=== PATIENT | male | born 1955 | race Caucasian/White ===

== ENCOUNTER → 2018-07-06 11:07 | Outpatient (CLI) | payer MEDICARE | END | disposition home or self-care (01) | LOC: D.MRI 11:07 | DX: M54.16 Radiculopathy, lumbar region (principal) ==

== ENCOUNTER 2018-08-17 05:35 | Day surgery (SDC) | payer MEDICARE ==
[2018-08-16 10:43] LABS: HEMATOCRIT 45.9 % (42.0-54.0); HEMOGLOBIN 16.4 g/dL (13.5-17.5); MCH 33.7 pg (26.0-34.0); MCHC 35.7 g/dL (31.0-37.0); MCV 94.4 fL (80.0-100.0); MEAN PLATELET VOLUME 10.2 fL (7.4-10.4); RBC 4.86 10x6/uL (4.20-6.10); RDW 13.3 % (11.5-14.5); WBC 12.7 10x3/uL (4.8-10.8)
[~2018-08-17] VITALS: Ht 170.2 cm; Wt 68.0 kg
--- NOTE | ~2018-08-17 | OP ---
PATIENT NAME: DAPHNIE CARVAJAL MEDICAL RECORD: [id number] :51 LOCATION:[facility] ADMISSION DATE: SURGEON: PANCHO NGUYEN MD DATE OF OPERATION: 08/17/2018 SURGEON: Pancho Nguyen MD ANESTHESIA: TIVA by Carey Mandujano CRNA. PROCEDURE: Transrectal ultrasound and prostate biopsy. DIAGNOSIS: Elevated PSA of 5.2. FINDINGS: 29 gram prostate with intraprostatic stones. EKG shows ST depression in multiple leads. SPECIMENS: Prostate biopsy cores. ESTIMATED BLOOD LOSS: Minimal. CLINICAL HISTORY: This is a 62-year-old male, who was referred by his primary care physician for an elevated PSA level of 5.2. He has some mild voiding symptoms including nocturia times 2. There is no family history of prostate cancer. He comes today for a prostate biopsy. He has no allergies to medication. He was given Ancef drywall contractor to the OR. His preoperative EKG shows ST depression in multiple lateral leads. We had the EKG reviewed by Dr. Amin, our pattern worker. Cardiology cleared him for this prostate biopsy procedure, but he needs a further cardiac workup. Next week, he is scheduled to have cervical spinal fusion surgery by Dr. Vora. He will need to get his cardiac clearance before that surgery. DESCRIPTION OF PROCEDURE: The patient was given IV sedation. He was then placed in the lithotomy position. The transrectal ultrasound probe was placed and the patient's prostate size was measured at 29 grams. Intraprostatic stones were seen, but no hypoechoic areas were seen. The patient persistently kept coughing throughout the procedure and straining. We obtained at least 3 cores from each sextant. Once all the cores are obtained, the procedure was terminated. I will review the pathology results with him next Thursday prior to his neck surgery on Thursday. TRANSINT:[id number] Voice Confirmation ID: [id number] DOCUMENT ID: [id number] PANCHO NGUYEN MD at 1346 CC: [id number] DICTATION DATE: 08/17/18 0854 CORRECTIONS CADET: 08/17/18 1112 [facility] 08/17/18 [place] [id number]
[~2018-08-17 05:35] MED LIST: BACTRIM DS1 TAB PO; TOPROL XL200 MG PO
[2018-08-17 06:15] VITALS: BP 143/63; Ht 170.2 cm; Wt 68.0 kg
== END 2018-08-17 10:11 | disposition home or self-care (01) ==
LOC: D.OPS 05:35 → D.PAN 09:00 → D.OPS 09:00 → D.PAN 09:15 → D.OPS 09:15
PROVIDERS: Urology
DX: R97.20 Elevated prostate specific antigen [PSA] (principal); Z01.812 Encounter for preprocedural laboratory examination

== ENCOUNTER → 2018-08-19 10:52 | Outpatient (CLI) | payer MEDICARE ==
[2018-08-17 06:15] VITALS: BMI 23.5
== END | disposition home or self-care (01) ==
LOC: D.HCCARDIO 10:52
DX: R94.31 Abnormal electrocardiogram [ECG] [EKG] (principal)

== ENCOUNTER 2018-08-24 05:10 | Day surgery (SDC) | payer MEDICARE ==
[2018-08-23 10:29] LABS: HEMATOCRIT 43.9 % (42.0-54.0); HEMOGLOBIN 15.6 g/dL (13.5-17.5); MCH 33.5 pg (26.0-34.0); MCHC 35.5 g/dL (31.0-37.0); MCV 94.2 fL (80.0-100.0); MEAN PLATELET VOLUME 10.3 fL (7.4-10.4); RBC 4.66 10x6/uL (4.20-6.10); WBC 10.2 10x3/uL (4.8-10.8)
[2018-08-24] VITALS (20 sets, daily range): BP systolic 145–177; BP diastolic 55–128; Ht 170.2 cm; Wt 72.3 kg
[~2018-08-24] VITALS: Ht 170.2 cm; Wt 72.3 kg
--- NOTE | ~2018-08-24 | OP ---
PATIENT NAME: DAPHNIE CARVAJAL MEDICAL RECORD: [id number] :51 [facility] AD[facility] DATE: SURGEON: JONES VORA MD DATE OF OPERATION: 08/24/2018 DATE OF SERVICE: 08/24/2018 PREOPERATIVE DIAGNOSES: Osteophyte formation and disc herniation at C4-C5 and C7-T1 with cervical spinal cord myelopathy. PROCEDURE: Anterior cervical discectomy and fusion with removal of osteophytes at C4-C5 and C7-T1 with Zavation anterior cervical plate and screws, PEEK interbody cage, Aimee bone stem cell allograft. SURGEON: Jones Vora MD DESCRIPTION OF TECHNIQUE: After induction of general endotracheal anesthesia, the patient was positioned supine on the operating table. Neck was prepped and draped in usual sterile fashion. A freer and fluoroscopic x-ray localized at C4-C5 and C7-T1 interspaces. A longitudinal skin incision was carried out from C4-C5 interspace to C7-T1. The platysma was divided with Bovie cautery. Using blunt and sharp dissection with Metzenbaum scissors, I proceeded in avascular plane medial to the carotid sheath. The C4-C5 and C7-T1 interspaces were identified with fluoroscopic x-ray and a spinal needle. Longus colli muscles were elevated from bodies of C4-C5 and C7-T1. Osteophytes were removed anteriorly with Adson rongeurs. [place] distracting pins placed in the bodies of C4-C5 and C7-T1. The disc space was incised at each level and the disc was removed with pituitary rongeurs and curettes. The endplates were prepared with curettes at each level. Osteophytes were drilled away posteriorly under microscope illumination. The posterior longitudinal ligament was removed at C4-C5 and C7-T1 at both levels. A PEEK interbody cage was placed in each disc space under distraction. Prior to placement, it was filled with Aimee Bone stem cell allograft. Next, a separate anterior cervical plate and screws were placed at C4-C5 and C7-T1. Locking cams were tightened down over the screw heads. Good position of the hardware was confirmed with fluoroscopic x-ray. Meticulous hemostasis was maintained throughout the wound. The wound was irrigated with copious amounts of Ancef irrigant solution. The platysma and subdermal layer closed with interrupted 3-0 Vicryl suture. The skin was reapproximated with a Prineo. All counts were reported as correct. Estimated blood loss was minimal. TRANSINT:[id number] Voice Confirmation ID: [id number] DOCUMENT ID: [id number] JONES VORA MD at 0928 CC: [id number] DICTATION DATE: 08/31/18913 NATURAL RESOURCES INSTRUCTOR: 08/31/18 1003 [facility] 08/25/18 [place] [id number]
[2018-08-25] VITALS (9 sets, daily range): BP systolic 151–201; BP diastolic 65–89
== END 2018-08-25 12:30 | disposition home or self-care (01) ==
LOC: D.OPS 05:10 → D.CVICU 05:10 → D.PAN 07:30 → D.OPS 07:30 → D.CVICU 11:41 → D.OPS 08-25 12:30
PROVIDERS: Anesthesiology
DX: M50.021 Cervical disc disorder at C4-C5 level with myelopathy (principal); M50.03 Cervical disc disorder with myelopathy, cervicothoracic region; M25.78 Osteophyte, vertebrae; R94.31 Abnormal electrocardiogram [ECG] [EKG]; I10 Essential (primary) hypertension

== ENCOUNTER 2018-09-08 11:18 | Outpatient (CLI) | payer MEDICARE ==
[~2018-09-08] VITALS: Ht 170.2 cm; Wt 68.2 kg
--- NOTE | ~2018-09-08 | HEMODYNAMI ---
PATIENT:DAPHNIE CARVAJAL MEDICAL RECORD: [id number] : 51 LOCATION:[facility] ADMISSION DATE: 09/08/18 Generatedon:09/08/201814:42 Patient name: DAPHNIE CARVAJAL Patient #: [id number] SSN: : 1955 Date of study: 09/08/2018 Page: Of Hemodynamic Procedure Report Patient Data Patient Demographics Procedure consent was obtained First Name: DAPHNIE Gender: Male Last Name: ALENA : 1955 Middle Initial: A Age: 62 year(s) Patient #: [id number] Race: Unknown Additional ID: [id number] Contact details Address: [address] [place] [address] State: [place] City: [facility] [place] Zip code: [address] Past Medical History Allergies: No known allergies Admission Admission Data Admission Date: 09/08/2018 Admission Time: 11:18 Admit Source: Other Lab Results Lab Result Date: 09/08/2018 Lab Result Time: 0:00 Biochemistry Name Units Result Min Max BUN mg/dl 13 --(--*-)-- 7 18 Creatinine mg/dl 0.8 --(-*--)-- 0.6 1.3 CBC Name Units Result Min Max Hematocrit % 42.7 --(*---)-- 42 54 Hemoglobin g/dl 14.9 --(-*--)-- 13.5 17.5 Procedure Procedure Types Cath Procedure Diagnostic Procedure LHC LHC w/Coronaries Procedure Description Procedure Date Procedure Date: 09/08/2018 Procedure Start Time: 14:24 Procedure End Time: 14:39 Procedure Staff Name Function Ramon Amin MD Performing Physician Remberto Jones RN Nurse Raymond Khan RT Scrub Gonzalo Mireles RT Monitor Procedure Data Cath Procedure Fluoroscopy Diagnostic fluoroscopy Total fluoroscopy Time: 2.8 time: 2.8 min min Diagnostic fluoroscopy Total fluoroscopy dose: dose: 214.11 mGy 214.11 mGy Contrast Material Contrast Material Type Amount (ml) Isovue 300 69 Entry Location Entry Primary Successful Side Size Upsize Upsize Entry Closure Gonzalez ccessful Closure Location (Fr) 1 (Fr) 2 (Fr) Remarks Device Remarks Radial Right 6 Fr Mechanical artery Short Compression Estimated blood loss: 5 ml Diagnostic catheters Device Type Used For End Catheter Placement DIAGNOSTIC Sigifredo 110cm Procedure 5Fr catheter ([id number]) DIAGNOSTIC Scenic 110cm 5 Procedure Fr catheter (034713) Procedure Complications No complications Procedure Medications Medication Administration Route Dosage Oxygen etCO2 Nasal cannula 2 l/min Lidocaine 2% added to field 20 Heparin Flush Bag added to field 2 bags (1000units/500ml NS) 0.9% NaCl I.V. 100 ml/hr Versed I.V. 1 mg Fentanyl I.V. 50 mcg Versed I.V. 1 mg Fentanyl I.V. 50 mcg Radial Cocktail I.A. 1 syringe (Verapomil 2mg/Nitro 400mcg/Heparin 1500units) Hemodynamics Rest HGB: 14.9 (g/dl) Heart Rate: 66 (bpm) Pressure Samples Time Site Value (mmHg) Purpose Heart Use Rate(bpm) 14:26 LV 117/-1,17 Snapshot 75 Gradients Valve Time Site Site Mean SEP/DFP Peak To Heart Use 1 2 (mmHg) (sec/min) Peak Rate (mmHg) (bpm) Aortic 14:27 LV AO 26 Snapshots Pre Cath Intra NCS Post Cath Vital Signs Time Heart Resp SPO2 etCO2 NIBP (mmHg) Rhythm Pain Sedation Rate (ipm) (%) (mmHg) Status Level (bpm) 14:06:35 75 23 96 0 156/84(124) NSR 0 (11) 10(A) , No pain 14:10:51 69 22 97 33.3 151/82(127) NSR 0 (11) 10(A) , No pain 14:15:07 73 17 95 33.3 139/76(122) NSR 0 (11) 10(A) , No pain 14:19:25 73 15 95 0 152/82(111) NSR 0 (11) 10(A) , No pain 14:24:36 64 17 92 24.2 161/81(132) NSR 0 (11) 9(A) , No pain 14:28:48 73 13 94 35.5 135/73(111) NSR 0 (11) 9(A) , No pain 14:33:05 74 14 93 24.9 141/72(112) NSR 0 (11) 9(A) , No pain 14:37:22 74 14 97 29.5 147/86(119) NSR 0 (11) 10(A) , No pain Medications Time Medication Route Dose Verified Delivered Reason Notes Effectiveness by by 14:11:49 Oxygen etCO2 2 l/min Ramon Buffie used for Nasal Brennan Jones RN procedure cannula 14:11:55 Lidocaine 2% added 20ml Ramon Ramon for local to vial Brennan Amin MD anesthetic field 14:12:02 Heparin Flush added 2 bags Ramon Ramon used for Bag to Brennan Amin MD procedure (1000units/500ml field NS) 14:12:11 0.9% NaCl I.V. 100 Ramon Buffie Per ml/hr Brennan Jones RN physician 14:19:14 Versed I.V. 1 mg Ramon Buffie for sedation Brennan Jones RN 14:19:22 Fentanyl I.V. 50 mcg Ramon Buffie for sedation Brennan Jones RN 14:23:43 Versed I.V. 1 mg Ramon Buffie for sedation Brennan Jones RN 14:23:48 Fentanyl I.V. 50 mcg Ramon Buffie for sedation Brennan Jones RN 14:30:57 Radial Cocktail I.A. 1 Ramon Ramon for (Verapomil syringe Brennan Amin MD vasodilation 2mg/Nitro 400mcg/Heparin 1500units) Procedure Log Time Note 13:19:29 Informed consent obtained and on chart 13:19:33 Admit Source: Other 13:19:48 Diagnostic Cath status Elective 13:43:04 Lab Result : BUN 13 mg/dl 13:43:04 Lab Result : Hemoglobin 14.9 g/dl 13:43:04 Lab Result : Creatinine 0.8 mg/dl 13:43:04 Lab Result : Hematocrit 42.7 % 13:43:07 Lab results completed and on chart. 13:54:48 Raymond KIM(R) sent for patient. Start room use. 13:54:49 Time tracking: Regular hours (M-F 7:00 - 5:00) 13:54:52 Plan of Care:Hemodynamics will remain stable., Cardiac rhythm will remain stable., Comfort level will be maintained., Respiratory function will remain adequate., Patient/ family verbilizes understanding of procedure., Procedure tolerated without complication., Recovers from procedure without complications.. 13:55:01 H&P Date Dictated: 08/19/2018 Within 30 days and on chart., H&P Addendum completed by physician on day of procedure. (MUST COMPLETE FOR ALL OUTPATIENTS). 13:58:35 Patient received from Pre/Post Procedure Room to CCL 3 Alert and oriented. Tansferred to table in Supine position. 13:58:36 Warm blankets applied, and carol hugger turned on for patient comfort. 13:58:36 Correct patient and procedure confirmed by team. 13:58:37 ECG and BP/O2 sat monitors applied to patient. 13:58:38 Pre-procedure instructions explained to patient. 13:58:39 Pre-op teaching completed and patient verbalized understanding. 13:58:40 Family in waiting room. 13:58:42 Patient NPO since Midnight. 13:58:49 Patient allergic to No known allergies 13:58:51 Is the patient allergic to Iodine/contrast media? No. 14:05:19 Vital chart was started 14:05:20 Baseline sample Acquired. 14:05:24 Rhythm: sinus rhythm 14:05:26 Full Disclosure recording started 14:11:49 Oxygen 2 l/min etCO2 Nasal cannula was administered by Remberto Jones RN; used for procedure; 14:11:55 Lidocaine 2% 20ml vial added to field was administered by Ramon Amin MD; for local anesthetic; 14:12:02 Heparin Flush Bag (1000units/500ml NS) 2 bags added to field was administered by Ramon Amin MD; used for procedure; 14:12:11 0.9% NaCl 100 ml/hr I.V. was administered by Remberto Jones RN; Per physician; 14:12:34 Is patient on blood thinner?No 14:12:36 Patient diabetic? No. 14:12:38 Previous problem with sedation/anesthesia? No ? 14:12:39 Snore? Yes 14:12:40 Sleep apnea? No 14:12:41 Deviated septum? No 14:12:41 Opens mouth fully? Yes 14:12:42 Sticks out tongue? Yes 14:13:03 Airway obstruction? Yes Asthma 14:13:28 Dentures? No ? 14:13:32 Patient pain scale 0/10 ?. 14:13:33 Modified Luis's test Ulnar < 7 seconds 14:13:37 IV patent on arrival in left hand with 0.9% NaCl at [facility]. 14:13:45 Right Radial & Right Groin area was prepped with chlora-prep and draped in sterile fashion 14:13:46 Alarms reviewed by R. N. 14:13:46 Sharps counted by scrub and verified by R.N. 14:13:50 Use device set Radial Dx or PCI 14:13:51 ACIST Syringe (38845) opened to sterile field. 14:13:51 Medline Cath Pack ([id number]) opened to sterile field. 14:13:51 Bag Decanter (2002S) opened to sterile field. 14:13:52 ACIST Hand Control (99332) opened to sterile field. 14:13:53 ACIST Manifold (04990) opened to sterile field. 14:13:53 Tegaderm 4 x 4 (1626W) opened to sterile field. 14:13:57 SHEATH 6FR Slender (78-1060) opened to sterile field. 14:13:58 DIAGNOSTIC WIRE .035 260cm J wire (524344) opened to sterile field. 14:18:15 Zero performed for pressure channel P1 14:18:47 Physician arrived 14:18:48 --------ALL STOP TIME OUT------ 14:18:49 Final Timeout: patient, procedure, and site verified with staff and physician. All members of the team are in agreement. 14:18:52 Right Radial & Right Groin site verified by team. 14:18:54 Physical assessment completed. ASA score P 2 - A patient with mild systemic disease as per Ramon Amin MD. 14:18:57 Sedation plan: IV Moderate Sedation Medication:Versed, Fentanyl 14:19:14 Versed 1 mg I.V. was administered by Remberto Jones RN; for sedation; 14:19:22 Fentanyl 50 mcg I.V. was administered by Remberto Jones RN; for sedation; 14:23:43 Versed 1 mg I.V. was administered by Remberto Jones RN; for sedation; 14:23:48 Fentanyl 50 mcg I.V. was administered by Remberto Jones RN; for sedation; 14:24:08 Procedure started. 14:24:13 Local anesthetic to right radial artery with Lidocaine 2% by Ramon Amin MD.INITIAL ACCESS ONLY 14:24:20 A 6 Fr Short sheath was inserted into the Right Radial artery 14:25:04 A DIAGNOSTIC Sigifredo 110cm 5Fr catheter (670444) was advanced over the wire and used for Procedure. 14::33 LV gram done using OCHOA 14::35 Injector settings: Ml/sec: 5, Volume: 15, 14::36 LV hemodynamics recorded. 14::41 EF : 60 % 14:27:53 RCA angiography performed. 14:29:00 Catheter exchanged over wire. 14:30:05 A DIAGNOSTIC Scenic 110cm 5 Fr catheter (600358) was advanced over the wire and used for Procedure. 14:30:35 LCA angiography performed. 14:30:57 Radial Cocktail (Verapomil 2mg/Nitro 400mcg/Heparin 1500units) 1 syringe I.A. was administered by Ramon Amin MD; for vasodilation; 14:34:02 Catheter removed. 14:34:03 TR BAND Standard ([id number]) opened to sterile field. 14:34:14 Sheath removed intact; hemostasis achieved with Mechanical Compression to the Right Radial artery. 14:34:22 Procedure ended.(Physican Out) 14:36:53 Fluoroscopy time 02.80 minutes. 14:37:01 Fluoroscopy dose: 214.11 mGy 14:37:01 Flurop Dose total: 214.11 14:37:06 Contrast amount:Isovue 300 69ml. 14:37:07 Sharps counted by scrub and verified by R.N. 14:37:09 TR band inflated with 13cc of air. 14:37:12 Insertion/operative site no bleeding no hematoma. 14:37:18 Post right radial artery:stable, soft, clean and dry 14:37:19 Post Procedure Pulses reassessed and unchanged 14:37:21 Post-procedure physical assessment completed. ASA score P 2 - A patient with mild systemic disease as per Ramon Amin MD. 14:37:24 Post procedure rhythm: unchanged. 14:37:26 Estimated blood loss: 5 ml 14:37:28 Post procedure instruction explained to patient.Patient verbalizes understanding. 14:37:28 Patient needs reinforcement of post procedure teaching. 14:39:31 Procedure and supply charges have been captured, reviewed, submitted and are correct. 14:39:33 Procedure Complication : No complications 14:39:35 Vital chart was stopped 14:39:35 See physician's report for complete and final results. 14:39:36 Report given to Pre/Post Procedure Room. 14:39:39 Patient transfered to Pre/Post Procedure Room with Stretcher. 14:39:41 Procedure ended. 14:39:41 Full Disclosure recording stopped 14:39:45 End room use (Document Last) Device Usage Item Name Manufacture Quantity Catalog Hospital Part Current Minimal Lot# / Number Charge Number Stock Stock Serial# Code ACIST Acist 1 81727 941763 839094 127547 20 Syringe Medical (37652) Systems Inc Medline Medline 1 [id number] 815041 04571 801273 5 Cath Pack ([id number]) Bag Microtek 1 2001S 879740 59448 470216 5 Decanter Medical Inc. () ACIST Hand Acist 1 84270 253547 828473 666288 5 Control Medical (44817) Systems Inc ACIST Acist 1 53447 917611 084791 845785 5 Manifold Medical (69162) Systems Inc Tegaderm 4 3M 1 1626W 429317 992910 545579 5 x 4 (1626W) SHEATH 6FR Terumo 1 [id number] 388647 861711 580758 40 Slender (80-1060) DIAGNOSTIC St Elijah 1 362489 754875 242957 500175 30 WIRE .035 260cm J wire (845729) DIAGNOSTIC Terumo 1 405023 379785 630429 047391 5 Sigifredo 110cm 5Fr catheter (433162) DIAGNOSTIC Terumo 1 40-5013 135982 492114 378395 5 Scenic 110cm 5 Fr catheter (108460) TR BAND Terumo 1 [id number] 394298 448340 761512 40 Standard ([id number]) Signature Audit [place] Stage Time Signature Unsigned Intra-Procedure 09/08/2018 Gonzalo Mireles 2:42:43 PM RT(R) Signatures Monitor : Gonzalo Mireles RT Signature : Date : Time : [place] [address] [place] [address]
[2018-09-08 11:56] VITALS: BP 183/72; Ht 170.2 cm; Wt 68.2 kg
[2018-09-08 12:15] LABS: BASOPHILS 1.8 % (0-2); EOSINOPHILS 5.7 % (0-7); HEMATOCRIT 42.7 % (42.0-54.0); HEMOGLOBIN 14.9 g/dL (13.5-17.5); IMMATURE GRANULOCYTES 0.1 % (0-5); LYMPHOCYTES 43.9 % (15-50); MCH 33.5 pg (26.0-34.0); MCHC 34.9 g/dL (31.0-37.0); MEAN PLATELET VOLUME 11.7 fL (7.4-10.4); MONOCYTES 12.6 % (2-11); NEUTROPHILS 35.9 % (40-80); RBC 4.45 10x6/uL (4.20-6.10); RDW 13.2 % (11.5-14.5); WBC 7.4 10x3/uL (4.8-10.8)
[2018-09-08 12:16] LABS: PLATELET COUNT 101 10x3/uL (130-400)
[2018-09-08 12:36] LABS: CALC OSMOLALITY 263 mosm/kg (275-300); CALCIUM 8.8 mg/dL (8.5-10.1); CARBON DIOXIDE 27.9 mmol/L (21.0-32.0); CHLORIDE - SERUM 98 mmol/L (98-107); CREATININE - SERUM 0.8 mg/dL (0.6-1.3); GLUCOSE 85 mg/dL (74-106); SODIUM 132 mmol/L (136-145); UREA NITROGEN 13 mg/dL (7-18); eGFR NON AFRICAN AMERICAN > 90 mL/min (90-120)
[2018-09-08 12:37] LABS: POTASSIUM - SERUM 5.6 mmol/L (3.5-5.1)
== END 2018-09-08 16:52 | disposition home or self-care (01) ==
LOC: D.CATH 11:18
PROVIDERS: Internal Medicine Cardiovascular Disease
DX: I25.10 Atherosclerotic heart disease of native coronary artery without angina pectoris (principal)

== ENCOUNTER → 2018-09-20 11:04 | Outpatient (CLI) | payer MEDICARE ==
[2018-09-08 11:56] VITALS: BMI 23.5
== END | disposition home or self-care (01) ==
LOC: D.CT 11:04
DX: I65.23 Occlusion and stenosis of bilateral carotid arteries (principal); R93.1 Abnormal findings on diagnostic imaging of heart and coronary circulation

== ENCOUNTER 2018-10-01 05:00 | Inpatient (IN) | payer MEDICARE ==
[2018-09-29 11:31] LABS: ALBUMIN 3.5 g/dL (3.4-5.0); ALKALINE PHOSPHATASE 156 U/L (46-116); ALT (SGPT) 58 U/L (10-68); BILIRUBIN - TOTAL 0.88 mg/dL (0.2-1.3); CALC OSMOLALITY 279 mosm/kg (275-300); CARBON DIOXIDE 28.9 mmol/L (21.0-32.0); CHLORIDE - SERUM 103 mmol/L (98-107); CREATININE - SERUM 0.9 mg/dL (0.6-1.3); GLUCOSE 104 mg/dL (74-106); POTASSIUM - SERUM 5.3 mmol/L (3.5-5.1); PROTEIN - SERUM 7.8 g/dL (6.4-8.2); SODIUM 140 mmol/L (136-145); UREA NITROGEN 15 mg/dL (7-18); eGFR NON AFRICAN AMERICAN 90 mL/min (90-120)
[2018-09-29 11:37] LABS: INR 1.11 (0.85-1.17); PROTIME 13.8 SECONDS (11.6-15.0)
[2018-09-29 11:38] LABS: APTT 45.4 SECONDS (22.8-39.4)
[2018-09-29 11:39] LABS: HEMATOCRIT 42.1 % (42.0-54.0); HEMOGLOBIN 14.6 g/dL (13.5-17.5); MCHC 34.7 g/dL (31.0-37.0); MCV 95.2 fL (80.0-100.0); MEAN PLATELET VOLUME 10.4 fL (7.4-10.4); RBC 4.42 10x6/uL (4.20-6.10); RDW 13.5 % (11.5-14.5)
[~2018-10-01] VITALS: Ht 170.2 cm; Wt 71.4 kg
[2018-10-01] VITALS (57 sets, daily range): BP systolic 111–159; BP diastolic 41–65; Ht 170.2 cm; Wt 71.4 kg
[2018-10-01 06:44] LABS: HEMATOCRIT 37.8 % (42.0-54.0); HEMOGLOBIN 13.5 g/dL (13.5-17.5); MCH 33.4 pg (26.0-34.0); MCHC 35.7 g/dL (31.0-37.0); MCV 93.6 fL (80.0-100.0); MEAN PLATELET VOLUME 10.5 fL (7.4-10.4); RBC 4.04 10x6/uL (4.20-6.10); RDW 13.6 % (11.5-14.5)
[2018-10-01 06:50] LABS: APTT 40.8 SECONDS (22.8-39.4); INR 1.06 (0.85-1.17); PROTIME 13.3 SECONDS (11.6-15.0)
--- NOTE | 2018-10-01 13:10 | NUR ---
1045-RECIEEVED FROM OR-RESPONDS EASILY TO VERBAL-HOB ELEVATED -R RADIAL ROME TO MONITOR-SIMPLE MASK AT 10L-SAT 94%-MORENO TO ALL EXREMITIES EQUAL-ABLE TO STATE NAME-CLEVIPREX INFUSING AT 17ML/H AND NITROGLYCERIN GTT AT 17ML/H-ABP 134/48-AND TITRATED FOR PARAMETER OF <140SYS AND >90-L NECK INCISION SLIGHT FIRM TO TOUCH -NO TRACHEAL DEVIATION-ICE PACK PLACED ORDERED-STAT PORTABLE CHEST XRAY DONE ORDERED-MORGAN CATH IN PLACE 1115-DR MURPHY AT [facility] AND DIRECTED REMOVAL OF ICEPACK-CONTINUE TITRATION FOR SYS <140-PT AWAKE AND ALERT- REMAINS AT [facility]-ENCOURAGED TO STAY WITH PT FOR ASSIST WITH ICE AND FLUIDS 1140-PT STATED PAIN INCREASING-ULTRAM PO GIVEN AND ASA-ABLE TO TAKE CLEAR LIQUID DIET EASILY-NO TRACHEAL DEVIATION AND CHANGE TO INCISION SITE 1315 TITRATED OFF NTG GTT-PT BROUGHT OWN INCENTIVE SPIROMETRY AND EASILY AND CORRECTLY [id number] CONVERESED-STATED SEVERAL MORE SURGERIES PLANNED OVER 2 WK INTERVALS
--- NOTE | 2018-10-01 16:31 | NUR ---
RESTING QUIETLY-NO TRACHEAL DEVIATION NOTED
--- NOTE | 2018-10-01 18:51 | NUR ---
171-DR MURPHY AT BEDSIDE-MONTEREY CATH D/C'D DIRECTED AND ASSISTED UP TO BEDSDIE-L NECK REMAINS SOFT TO TOUCH-TITRATING CLEVIPREX PER PARAMETER 1814-REMAINS UP IN CHAIR-STATED COMFORTABLE-R RADIAL ROME-POOR WAVE FORM-BP CUFF IN PLACE-TITRATION PER BP CUFF-L NECK SOFT AND NO TRACHEAL DEVIATION-SPEECH IMPROVED WITH CLARITY
--- NOTE | 2018-10-01 19:00 | NUR ---
REPORT RECEIVED AND ASSESSMENT COMPLETED. SEE FLOWSHEET FOR FULL DETAILS. VSS. PT IS POT OP CAROTID. NO SIGNS OF SWELLING EDVIN IN PLACE. PT UP IN CHAIR VSS. ON CLEVIPREX. B/P 130'S SYSTOLIC. WILL MONITOR THROUGHOUT SHIFT
--- NOTE | 2018-10-01 21:00 | NUR ---
2100 MEDS GIVEN VSS. WILL MONITOR
[2018-10-02] VITALS (66 sets, daily range): BP systolic 106–179; BP diastolic 41–74
--- NOTE | 2018-10-02 11:01 | OP ---
PATIENT NAME: DAPHNIE CARVAJAL MEDICAL RECORD: [id number] :51 LOCATION[facility] D.CV03 ADMISSION DATE:10/01/18 SURGEON: GISELA MURPHY MD DATE OF OPERATION: 10/01/2018 SURGEON: Gisela Murphy MD FRUIT PRESERVER: Keith Urias MD OPERATION PERFORMED: Left carotid endarterectomy. PREOPERATIVE DIAGNOSES: Bilateral carotid stenosis and coronary artery disease. POSTOPERATIVE DIAGNOSES: Bilateral carotid stenosis and coronary artery disease. ANESTHESIA: General endotracheal anesthesia. ESTIMATED BLOOD LOSS: 20 cc. COMPLICATIONS: None. SPECIMENS: Plaque. CONDITION: Stable. DISPOSITION: CV ICU. OPERATIVE FINDINGS: 1. Severely calcified plaque that feathered well distally. 2. CorMatrix patch closure. 3. Neurologically intact to ICU. INDICATION: Bilateral severe carotid stenosis and coronary artery disease. PROCEDURE IN DETAIL: The patient was brought to the operating suite. General anesthesia was obtained. The patient was prepped and draped. An oblique incision was made in the neck and taken down through subcutaneous tissue and platysma. Superior flaps were raised and the common carotid artery was dissected out. The ansa was divided between clips. Common carotid was encircled with a Vesseloop. A large thyroid branch came off the common carotid just before the bifurcation. It was encircled with a Vesseloop. The external carotid was encircled with a Vesseloop. The internal carotid was dissected out distally behind the hypoglossal nerve and into a region where the artery was soft. Heparin was given, and after heparin circulated, the internal carotid flow was controlled with a bulldog clamp. Inflow was controlled with vascular clamp and backbleeding. External carotid and thyroid branch were controlled with Vesseloops. EEG was normal for 2 minutes and then the endarterectomy was begun by making arteriotomy in the common carotid artery, taken out through region of dense calcification in the proximal internal carotid artery and into a relatively normal region of the internal carotid artery. The plaque was divided and the common carotid artery with an eversion endarterectomy of the external carotid and then the plaque feathered well distally in the internal carotid. Thorough irrigation was undertaken. All bits of loose debris were removed. The CorMatrix patch was fashioned to the appropriate size and sutured along the edge OPERATIVE REPORT [id number] DAPHNIE CARVAJAL of the arteriotomy. Prior to completing the anastomosis, backbleeding was allowed from all 3 major vessels and the endarterectomy bed was again flushed with heparinized saline. Anastomosis was completed and flow was restored, first to the external carotid and then to the internal carotid. Interrupted sutures were used for hemostasis. Protamine was reversed, and after the protamine was reversed, hemostasis was ensured. A drain was placed through a separate stab wound. Thorough irrigation was undertaken. Wound was closed with 2 layers and a subcuticular, then Dermabond. Anesthesia was reversed. The patient neurologically intact to ICU. TRANSINT:[id number] Voice Confirmation ID: [id number] DOCUMENT ID: [id number] GISELA MURPHY MD at 1101 CC: [id number] DICTATION DATE: 10/01/181715 PARTS ADVISOR: 10/02/18 0315 ADM IN [place] [id number] [place] [id number]
[2018-10-02 11:47] LABS: BASOPHILS 0.4 % (0-2); EOSINOPHILS 0.7 % (0-7); HEMOGLOBIN 12.2 g/dL (13.5-17.5); IMMATURE GRANULOCYTES 0.4 % (0-5); LYMPHOCYTES 20.2 % (15-50); MCHC 34.9 g/dL (31.0-37.0); MCV 94.6 fL (80.0-100.0); MEAN PLATELET VOLUME 10.6 fL (7.4-10.4); MONOCYTES 8.9 % (2-11); NEUTROPHILS 69.4 % (40-80); PLATELET COUNT 117 10x3/uL (130-400); RDW 13.8 % (11.5-14.5)
[2018-10-02 11:50] LABS: WBC 15.7 10x3/uL (4.8-10.8)
[2018-10-02 11:56] LABS: CALC OSMOLALITY 265 mosm/kg (275-300); CALCIUM 7.8 mg/dL (8.5-10.1); CARBON DIOXIDE 21.3 mmol/L (21.0-32.0); CHLORIDE - SERUM 100 mmol/L (98-107); CREATININE - SERUM 0.8 mg/dL (0.6-1.3); GLUCOSE 111 mg/dL (74-106); POTASSIUM - SERUM 3.7 mmol/L (3.5-5.1); SODIUM 132 mmol/L (136-145); UREA NITROGEN 13 mg/dL (7-18); eGFR NON AFRICAN AMERICAN > 90 mL/min (90-120)
--- NOTE | 2018-10-02 17:19 | NUR ---
0715-RECIEVED PER FLOW SHEET-SLIGHT FIRMNESS NOTED TO L DRG [id number]-[id number] [id number]-FBTLF-HF DIFFICULTY SWALLOWING-DENIES PAIN AND TRACHEA IN ALIGNMENT-MORENO TO ALL EXTREMITIES-VOCALIZES EASILY-NO CHANGE IN LEAD 2 EKG PATTERN-ST DEPRESSION PRESENT 1100-DR MURPHY AT [facility]-L J-CHOUDHURY D/C'D PER PROTOCOL-SUTUREX1 REMOVED 1130-R RADIAL ROME D/C'D DIRECTED BY DR MURPHY-NIBP TO BEUSED CLEVIPREX TITRATED PER PARAMETER OF 160SYS HYDRALAZINE GIVEN PO -CLIVIPREX AT 3MG 1400-CLEVIPRX AT 2MG 1500 CLEVIPREX AT 1MG 1530-NIBP 142 SYS-CLEVIPREX OFF AND R JUGULAR SALINE LOCKED -PT PLACED ON TELEMETRY FOR EASIER AMBULATION-NIBP CHECKS TO QIH 1550 AMBULATING IN UNIT WITH ASSIST OF WALKER-PT STATES HAS HAD TO USE DUE TO NECK/CERVICAL SPINE ISSUES-DR MURPHY IN UNIT
--- NOTE | 2018-10-02 19:45 | NUR ---
REPORT REC'D AND CARE ASSUMED, REC'D PT SITTING UP IN RECLINER AT BS, BP CUFF REAPPLIED, TELEMETRY BOX ON, SPO2 ON ROOM AIR 96%, RIGHT IJ SALINE LOCKED, LEFT NECK INCISION CDI, LEFT UPPER CHEST DRSG CDI TO PREVIOUS EDVIN INSERTION SITE, ABD SOFT ROUND BS X 4, MAEE, CM-ST @ 110, PT DENIES PAIN, ICE WATER PROVIDED ON REQUEST, CALL LIGHT IN REACH.
--- NOTE | 2018-10-02 20:10 | NUR ---
PT GOT SELF BACK TO BED AFTER GETTING UP TO RESTROOM, BP 179/70, UPON ENTERING THE ROOM BP RECHECKED BEFORE ADMINISTERING PRN HYDRALAZINE, BP 160/68, WILL HOLD PRN MED FOR NOW, EVENING MEDS DUE SOON, PT DENIES NEEDS, SR UP X 2, BED IN LOW POSITION.
--- NOTE | 2018-10-02 20:55 | NUR ---
EVENING MEDS GIVEN, PT RESTING IN BED, DENIES PAIN OR NEEDS, CALL LIGHT IN REACH.
--- NOTE | 2018-10-02 23:30 | NUR ---
REASSESSMENT COMPLETED, PT RESTING ON RIGHT SIDE EYES CLOSED, BP 106/72, CM-SR VIA TELEMETRY, PT EASILY AWAKENS, TONGUE MIDLINE, BILATERAL MASTER AT ARMS EQUAL AND STRONG, WILL MONITOR FOR CHANGES.
[2018-10-03] VITALS (9 sets, daily range): BP systolic 120–154; BP diastolic 57–74
--- NOTE | 2018-10-03 02:00 | NUR ---
NO CHANGES IN STATUS AT THIS TIME.
--- NOTE | 2018-10-03 03:30 | NUR ---
PT UP TO RECLINER, STATES " I HAD ALL THAT BED I COULD TAKE", DENIES PAIN, COFFEE PROVIDED ON REQUEST, CALL LIGHT IN REACH.
--- NOTE | 2018-10-03 05:00 | NUR ---
PT REMAINS UP IN CHAIR, COFFEE AND NEWSPAPER PROVIDED, AM LAB DRAWN FROM [facility], PT DENIES PAIN OR OTHER NEEDS.
[2018-10-03 05:28] LABS: MCH 32.1 pg (26.0-34.0); MCHC 33.3 g/dL (31.0-37.0); MCV 96.2 fL (80.0-100.0); MEAN PLATELET VOLUME 10.2 fL (7.4-10.4); RBC 3.43 10x6/uL (4.20-6.10); RDW 14.1 % (11.5-14.5)
[2018-10-03 05:33] LABS: WBC 8.4 10x3/uL (4.8-10.8)
[2018-10-03 05:40] LABS: ALBUMIN 2.9 g/dL (3.4-5.0); ALKALINE PHOSPHATASE 104 U/L (46-116); ALT (SGPT) 46 U/L (10-68); BILIRUBIN - TOTAL 0.93 mg/dL (0.2-1.3); CALC OSMOLALITY 270 mosm/kg (275-300); CALCIUM 7.9 mg/dL (8.5-10.1); CARBON DIOXIDE 25.2 mmol/L (21.0-32.0); CHLORIDE - SERUM 102 mmol/L (98-107); CREATININE - SERUM 0.7 mg/dL (0.6-1.3); GLUCOSE 103 mg/dL (74-106); POTASSIUM - SERUM 3.6 mmol/L (3.5-5.1); PROTEIN - SERUM 6.7 g/dL (6.4-8.2); SODIUM 136 mmol/L (136-145); UREA NITROGEN 10 mg/dL (7-18); eGFR NON AFRICAN AMERICAN > 90 mL/min (90-120)
--- NOTE | 2018-10-03 05:45 | NUR ---
AM MEDS GIVEN, NO VISITORS IN AT THIS TIME, VSS, WILL REPORT TO ONCOMING SHIFT
--- NOTE | 2018-10-03 07:26 | NUR ---
RECIEVED AWAKE ALERT-MORENO X4 ALL STRONG-L NECK NO EDEMA-DRG DRY AND INTACT
[2018-10-03] MEDS ORDERED: HYDRALAZINE HCL25 MG PO (12:01)
[2018-10-03] MEDS ORDERED: LISINOPRIL5 MG PO (12:02)
[2018-10-03] MEDS ORDERED: NIFEDIPINE30 MG/BOT1 PO (12:02)
[2018-10-03] MEDS ORDERED: ASPIRIN81 MG PO (12:02)
--- NOTE | 2018-10-03 13:11 | NUR ---
1130-DR MURPHY AT [facility] AND SPOKE WITH PT-REMOVED DRESSING TO L [id number] AND STATED NEED TO SWITCH TO [facility]-CURRENTLY LOGGED IN [facility]-SAME SWITCHED IN COMPUTER-DIRECTIONS FOR INCISION CARE GIVEN-STRESSED NO SOAP/LOTIONS/OINTMENTS OR ROUGH TOWELING-MAY SHOWER OR PAT DRY-STRESSED TO FOLLOW DIRECTIONS FOR [facility]CF SURGERY [address] MORENO-REVIEWED NEW MEDICATION ORDERS REMOVED L 2LSC-PER PROTOCOL-2 SUTURES-TOLERATED WELL ASSISTED WITH WALKER TO 'S CAR AT DOOR-AMBULTED WELL
--- NOTE | 2018-10-04 12:57 | HP ---
PATIENT: DAPHNIE CARVAJAL MEDICAL RECORD: [id number] ACCOUNT: [id number] LOCATION:[facility] D.CV03 : 51 ADMISSION DATE: 10/01/18 PCP: GISELA MURPHY MD HISTORY AND PHYSICAL EXAMINATION DAPHNIE Camargo (62yo, M) ID# [id number]. Date/Time09/21/2018 03:[id number] 1955Service Dept.[facility] [facility] ClinicProviderDANICHINO MURPHY MDInsuranceMed Primary: DANNIE GBA - MEDICARE-[employer] BO[employer] (MEDICARE) Insurance # : [id number] Employer Name : UNKNOWN Prescription: [employer] - This member could not be found in the payer's files. Please verify coverage and all member demographic information. Chief Complaint Carotid stenosis Followup: Coronary arteriosclerosis RTC FOR RESULTS OF CTA Patient's Pharmacies [facility] [place] [address] (ERX): [address] [place] [address], , Vitals BP:164/74 sitting L arm 09/21/2018 03:34 pmBP Cuff Size:adult 09/21/2018 03:34 pmHR:72,reg 09/21/2018 03:34 pmHt:5 ft 7 in 09/21/2018 03:28 pmWt:150 lbs 09/21/2018 03:35 pmBMI:23.5 09/21/2018 03:35 pmAllergies Reviewed Allergies NKDAMedications Reviewed Medications metoprolol succinate ER 200 mg tablet,extended release 24 hr TK 1 T PO QD08/27/18 filledsurescriptsProblems Reviewed Problems Coronary arteriosclerosis - Onset: 09/10/2018 Family History Reviewed Family History Father- Myocardial infarctionSocial History Reviewed Social History Cardiology Family history of heart disease?: Y Smoking Status: Former smoker High Cholesterol: N High blood pressure: Y Exercise level: None Alcohol intake: Moderate Diet: Regular Occupation: retired Tobacco-years of use: 10 Surgical History Reviewed Surgical History carpal tunnel 2003/2004 elbow ligament cataracts 2014 [id number] Past Medical History Reviewed Past Medical History HISTORY AND PHYSICAL [id number] DAPHNIE CARVAJAL Asthma: Y Hypertension: Y Pain in legs when walking: Y Prostate Problems: Y Documents for Discussion N/A Screening None recorded. HPI Cerebral Vascular Disease Reported by patient. Associated Symptoms: no headache; no nausea; no vomiting; no tinnitus; no difficulty speaking; no lethargy; no fever; no chills; no palpitations; no syncope; no loss of consciousness Notes: markedly abnormal carotid on CTA asymptomatic bilateral severe carotid stenosis, confirmed by CTA reports strong family history Coronary disease preop for coronary bypass graft Recent right anterior cervical approach to the spine ROS Additionally reports: unchanged ROS as noted in the HPI Physical Exam Patient is a 62-year-old male. Constitutional: General Appearance well nourished and developed and healthy-appearing. Level of Distress NAD. Ambulation ambulating normally. Cardiovascular: Apical Impulse not displaced. Heart Auscultation RRR and no murmurs. Arterial Pulses 2+ bilateral radial. Edema no edema. Lungs: Repiratory Effort no dyspnea. Auscultation no wheezing, rhonchi, or rales / crackles and breathing sounds normal and good air movement. Abdomen: Bowl Sounds normal. Inspection and Palpation soft, non-distended, and no tenderness. Ears, Nose, Throat: Hearing grossly normal hearing. Oropharynx: moist mucous membranes. Musculoskeletal System: Gait And Stance normal gait and stance. Joints, Bones, and Muscles normal strength and movement of all extremities; improving strength following neck surgery. Neurologic: Cranial Nerves grossly intact. Sensation grossly intact. Lymph Nodes: Lymph Nodes no cervical LAD. Eyes: Lids and Conjunctivae non-injected. Pupils PERRLA. EOM EOMI. Sclerae non-icteric. Neck: Neck healing transverse scar at the base of the right neck. Assessment / Plan 1. Coronary arteriosclerosis I25.10: Atherosclerotic heart disease of [place] coronary artery without angina HISTORY AND PHYSICAL [id number] DAPHNIE CARVAJAL pectoris 2. Carotid artery stenosis I65.29: Occlusion and stenosis of unspecified carotid artery CAROTID STENOSIS: CARE INSTRUCTIONS Discussion Notes we discussed the timing of surgery including the possibility of combined carotid and coronary surgery, the risks, the alternativ es, the benefits, and the recovery. Plan left carotid endarterectomy first thin likely right carotid then coronary bypass graft. He understands the risks and the warning signs for which she'll seek immediate medical attention Return to Office to see Pancho Gaona MD for Generic Appt at [facility] on or around 08/05/2019 GISELA MURPHY MD at 1257 CC: [id number] DICTATION DATE: 09/21/18 1500 MASTER OF CEREMONIES: FABRICIO 10/04/18 1133 DIS IN 10/03/18 [place] [address] [facility] [address]
== END 2018-10-03 13:15 | disposition home or self-care (01) | DRG 39 ==
LOC: D.SDCHOLD 05:00 → D.CVICU 05:00 → D.SDCHOLD 07:30 → D.CVICU 08:06
PROVIDERS: Internal Medicine Cardiovascular Disease; ADMIT Thoracic Surgery (Cardiothoracic Vascular Surgery)
PROC: 03UL0JZ Supplement Left Internal Carotid Artery with Synthetic Substitute, Open Approach (ICD-10-PCS; 2018-10-01)
PROC: 03CL0ZZ Extirpation of Matter from Left Internal Carotid Artery, Open Approach (ICD-10-PCS; principal; 2018-10-01 07:30)
DX: I65.23 Occlusion and stenosis of bilateral carotid arteries (principal); I25.10 Atherosclerotic heart disease of native coronary artery without angina pectoris; I10 Essential (primary) hypertension; Z87.891 Personal history of nicotine dependence

== ENCOUNTER 2018-11-08 09:38 | Inpatient (IN) | payer MEDICARE, BC ==
[~2018-11-08] VITALS: Ht 170.2 cm; Wt 67.4 kg
[~2018-11-08 09:38] MED LIST changes: +ASPIRIN81 MG PO; +HYDRALAZINE HCL25 MG PO; +LISINOPRIL5 MG PO; +NIFEDIPINE30 MG/BOT1 PO
[2018-11-08 10:46] LABS: HEMATOCRIT 40.4 % (42.0-54.0); HEMOGLOBIN 14.4 g/dL (13.5-17.5); MCHC 35.6 g/dL (31.0-37.0); MCV 92.7 fL (80.0-100.0); MEAN PLATELET VOLUME 10.3 fL (7.4-10.4); RBC 4.36 10x6/uL (4.20-6.10); RDW 12.4 % (11.5-14.5); WBC 10.1 10x3/uL (4.8-10.8)
[2018-11-08 11:06] LABS: ALBUMIN 3.7 g/dL (3.4-5.0); ALKALINE PHOSPHATASE 143 U/L (46-116); ALT (SGPT) 59 U/L (10-68); BILIRUBIN - TOTAL 0.79 mg/dL (0.2-1.3); CALC OSMOLALITY 264 mosm/kg (275-300); CALCIUM 9.2 mg/dL (8.5-10.1); CARBON DIOXIDE 26.3 mmol/L (21.0-32.0); CHLORIDE - SERUM 97 mmol/L (98-107); CREATININE - SERUM 0.9 mg/dL (0.6-1.3); GLUCOSE 98 mg/dL (74-106); POTASSIUM - SERUM 4.6 mmol/L (3.5-5.1); PROTEIN - SERUM 8.1 g/dL (6.4-8.2); SODIUM 133 mmol/L (136-145); UREA NITROGEN 9 mg/dL (7-18); eGFR NON AFRICAN AMERICAN 90 mL/min (90-120)
[2018-11-08 11:10] LABS: APPEARANCE CLEAR (CLEAR); BILIRUBIN NEGATIVE (NEGATIVE); COLOR YELLOW (YELLOW); GLUCOSE NEGATIVE (NEGATIVE); KETONE NEGATIVE (NEGATIVE); NITRITE NEGATIVE (NEGATIVE); PROTEIN NEGATIVE (NEGATIVE); UROBILINOGEN NORMAL (NORMAL)
[2018-11-08 11:30] LABS: APTT 40.5 SECONDS (22.8-39.4); INR 1.1 (0.85-1.17); PROTIME 13.7 SECONDS (11.6-15.0)
[2018-11-09] VITALS (52 sets, daily range): BP systolic 104–143; BP diastolic 35–71; BMI 23.4
--- NOTE | 2018-11-09 11:00 | NUR ---
PT ARRIVED FROM OR AROUND 1050. EYES CLOSED. DRESSING NOTED ON RIGHT SIDE OF NECK C/D/I. RIGHT SIDE OF NECK/SHOULDER EDVIN DRAIN WITH BLOODY DRAINAGE NOTED. DRESSING CDI. HAS LSUBCLAVIAN DOUBLE LUMEN CVL. NITRO INFUSING AT 30ML/HR AND CLEVIPREX INFUSING AT 10ML/HR. MORGAN IN PLACE WITH YELLOW CONCENTRATED URINE NOTED. ADALBERTO HOSE ON BOTH LEGS. SCD'S IN PLACE. RIGHT RADIAL ROME. R EXTREMITIE PINK AND WARM. PLASMOLYTE INFUSING AT 100ML/HR. ON 10L OF O2 VIA SIMPLE MASK. SAFETY MEASURES IN PLACE. WILL CONTINUE TO MONITOR.
--- NOTE | 2018-11-09 11:24 | NUR ---
LOPRESSOR 2.5MG IV GIVEN PER ORDERS. NITRO DRIP DECREASED TO 27ML/HR. WILL CONTINUE TO WEAN TOLERATED.
--- NOTE | 2018-11-09 13:05 | NUR ---
PT AWAKE AND ALERT. ABLE TO SWALLOW WITHOUT DIFFICULTY. REPORTS PAIN 5/10 ON RIGHT SIDE OF NECK NEAR HIS JAW. DAILY MEDS GIVEN. TOPROL GIVEN PER ORDERS. CONTINUES ON NITRO AT 5ML/HR AND CLEVIPREX AT 6ML/HR. EMPTIED 20ML OF BLOODY DRAINAGE FROM EDVIN DRAIN USING STERILE GLOVES. SPOUSE AT BEDSIDE. WILL CONTINUE TO MONITOR.
--- NOTE | 2018-11-09 14:09 | NUR ---
RESTING WITH EYES CLOSED. AWAKENS TO VOICE. BEST EFFORT ON I.S. BETWEEN [id number]. SLIGHT COUGH NOTED. NO SPUTUM SEEN. WILL CONTINUE TO MONITOR.
--- NOTE | 2018-11-09 15:00 | NUR ---
RE-ASSESSMENT COMPLETED. RESTING COMFORTABLY. CLEVIPREX INFUSING AT 6ML/HR, NITRO INFUSING AT 3ML/HR AND PLASMOLYTE INFUSING AT 30ML/HR. RATES PAIN 4/10 AT INCISION SITE. ON 4L OF O2 VIA NC. EDVIN DRAIN REMAINS IN PLACE WITH SANGUINESS DRAINAGE. DRESSING ON R-SIDE OF NECK C/D/I. DENIES FURTHER NEEDS AT THIS TIME. WILL CONTINUE TO MONITOR.
--- NOTE | 2018-11-09 16:24 | MORECARE ---
CASE MANAGEMENT DISCHARGE SUMMARY PATIENT: DAPHNIE CARVAJAL UNIT: [id number] ADM DATE: 11/09/18 AGE: 63 : 53 SEX: M ROOM/BED: [facility] AUTHOR: COLLINS VELASQUEZ PHYSICIAN: REFERRING PHYSICIAN: GISELA MURPHY MD DATE OF SERVICE: 11/09/18 Discharge Plan Patient Name: DAPHNIE [facility]VAJAL [facility] [facility] 1955 Planned Disposition: Home Anticipated Discharge Date: Discharge Date: Expected LOS: Initial Reviewer: [email or web address] Initial Review Date: 11/09/2018 Generated: 11/09/18 5:23 pm Patient Name: DAPHNIE CARVAJAL Page [id number] at 1624 All edits/amendments must be made on the electronic document DICTATION DATE: 11/09/181622 MANAGER ORANGE: FABRICIO 11/09/181622 RPT#: [id number] DC DATE: STATUS: ADM IN [facility] [address] [place] [address] END OF REPORT
--- NOTE | 2018-11-09 16:34 | MORECARE ---
CASE MANAGEMENT DISCHARGE SUMMARY PATIENT: DAPHNIE CARVAJAL UNIT: [id number] ADM DATE: 11/09/18 AGE: 63 : 53 SEX: M ROOM/BED: D[facility] AUTHOR: RON,DOC PHYSICIAN: REFERRING PHYSICIAN: GISELA MURPHY MD DATE OF SERVICE: 11/09/18 Discharge Plan Patient Name: DAPHNIE CARVAJAL Facility: [facility]:[place] : 1955 Planned Disposition: Home Anticipated Discharge Date: Discharge Date: Expected LOS: Initial Reviewer: [email or web address] Initial Review Date: 11/09/2018 Generated: 11/09/18 5:34 pm Comments DCP- Discharge Planning Updated by [email or web address]: Moira Menendez on 11/09/18 3:[address] Patient Name: DAPHNIE CARVAJAL Admission Status: Elective Accout number: [id number] Admission Date: 11-09-2018 : 1955 Admission Diagnosis: Attending: GISELA MURPHY Current LOS: 1 Anticipated DC Date: Planned Disposition: Home Primary Insurance: MEDICARE A & B Discharge Planning Comments: CM met with patient and spouse Soo at bedside. Patient states he lives at home with his . Patient plans to return to his home upon discharge. Denies any discharge needs. CM will continue to follow and assist as needed with discharge planning/ needs. Clinical Program Consultant: Moira Menendez DCPIA - Discharge Planning Initial Assessment Updated by [email or web address]: Moira Menendez on 11/09/18 4:24 pm * Is the patient Alert and Oriented? Yes * How many steps to enter\exit or inside your home? * PCP TRAVON RAE APN @ [facility] * Pharmacy [facility] * Preadmission Environment Home with Family * ADLs Independent * Equipment None * List name and contact numbers for known caregivers / representatives who currently or will assist patient after discharge: SOO CARVAJAL - SPOUSE- [phone] * Verbal permission to speak to the caregivers and representatives has been obtained from the patient. Yes * Community resources currently utilized None * Additional services required to return to the preadmission environment? No * Can the patient safely return to the preadmission environment? Yes * Has this patient been hospitalized within the prior 30 days at any hospital? No Last DP export: 11/09/18 3:23 pm Patient Name: DAPHNIE CARVAJAL Page [phone] at 1634 All edits/amendments must be made on the electronic document DICTATION DATE: 11/09/181632 IMAGE PROCESSING ENGINEER: FABRICIO 11/09/181632 RPT#: [id number] DC DATE: STATUS: ADM IN [facility] [address] [place] [address] END OF REPORT
--- NOTE | 2018-11-09 17:43 | NUR ---
ATE 100% OF CLEAR LIQUID MEAL. TOLERATING FOOD WELL. WILL INCREASE DIET PER ORDERS. ICE WATER PROVIDED. CONTINUES ON 2MCG/MIN OF CLEVIPREX. BP IN 120-130S. WILL CONTINUE TO MONITOR.
--- NOTE | 2018-11-09 17:53 | NUR ---
CLEVIPREX INCREASED AT THIS TIME UP TO 4MCG/MIN DUE TO BP BEING IN 140S.
--- NOTE | 2018-11-09 19:00 | NUR ---
Received patient resting in bed with eyes open, assessment completed per flowsheet. Patient AO x4 calm and cooperative. R anterior neck incision dressing CDI, EDVIN x1 with small bloody drainage. S1/S2 noted NSR on telemetry with HR 88, rythmic and regular. Breathing is even/unlabored on 4L via NC with O2 sat 98%, lung sounds clear bilateral upper and mid with diminished lower. Abdomen is flat/soft with bowel sounds hypoactive x4, non-tender. Criticore secured, clear/yellow urine noted. R radial A-line with good waveform, wrist protector in use with good sensation. Remaining pulses palpable with cap refill < 3 sec, skin warm/dry. C/O incisional aching 4/10, PRN Tramadol given as ordered and will reassess. No further needs at this time, see flowsheet for details. All VSS and will continue to monitor.
--- NOTE | 2018-11-09 21:00 | NUR ---
Patient resting in bed with eyes open, HS meds given without difficulty. Discussed cough/deep breath with all questions answered to satisfaction, returns demonstration with 1250ml noted on IS. Denies pain or other needs at this time, all VSS and will continue to monitor.
--- NOTE | 2018-11-09 23:00 | NUR ---
Reassessment completed per flowsheet, no changes from previous assessment. R anterior neck incision dressing CDI, EDVIN x1 with small bloody drainage noted. No difficulty breathing/swallowing noted. S1/S2 NSR on telemetry, rythmic and regular. Breathing is even/unlabored on 2L via NC with O2 sat 97%, lung sounds clear bilateral upper and mid with diminished lower. All pulses palpable with cap refill < 3 sec, skin warm/dry. Denies pain or other needs, see flowsheet for details. All VSS and will continue to monitor.
[2018-11-10] VITALS (58 sets, daily range): BP systolic 113–150; BP diastolic 42–74; Ht 170.2 cm; Wt 67.4 kg
--- NOTE | 2018-11-10 01:00 | NUR ---
Patient sleeping in bed with eyes closed, no s/s of distress at this time. EDVIN x1 with small bloody drainage, dressing CDI. No further needs at this time, will continue to monitor.
--- NOTE | 2018-11-10 03:00 | NUR ---
Reassessment completed per flowsheet, no changes from previous assessment. R anterior neck incision dressing CDI, EDVIN x1 with small bloody drainage noted. No difficulties swallowing/breathing noted, no swelling noted. S1/S2 noted NSR on telemetry, rythmic and regular. Breathing is even/unlabored on 1L via NC with O2 sat 95%, lung sounds clear bilateral upper and mid with diminished lower. All pulses palpable with cap refill < 3 sec, skin warm/dry. Patient denies pain or other needs at this time, see flowsheet for details. All VSS and will continue to monitor.
--- NOTE | 2018-11-10 05:00 | NUR ---
Patient resting in bed with eyes closed, full bed bath given without difficulty. Denies pain or other needs at this time, all VSS and will continue to monitor.
--- NOTE | 2018-11-10 07:00 | NUR ---
SHIFT REPORT RECEIVED. AA&OX4. NO PAIN AT THIS TIME. JUST SOME SORENESS ON HIS RIGHT JAW. RIGHT SIDE OF NECK DRESSING C/D/I. UP DRAIN REMAINS IN PLACE WITH SANGUINOUS DRAINAGE NOTED. HAS L-SUBCLAVIAN CVL WITH CLEVIPREX AT 8ML/HR AND PLASMOLYTE AT 30ML/HR. I.S. BEST EFFERT BETWEEN [id number]. MORGAN IN PLACE WITH YELLOW CONCENTRATED URINE NOTED. SCD'S AND ADALBERTO HOUSE ON BOTH LE. LUNGS CLEAR THROUGH OUT. BS ACTIVE X 4QUADRANTS. SHIFT ASSESSMENT COMPLETED. SAFETY MEASURES IN PLACE. WILL CONTINUE TO MONITOR.
--- NOTE | 2018-11-10 09:15 | NUR ---
R-ROME, MORGAN CATHETER, AND L-FOREARM PIV CD'D AT THIS TIME. ASSITED PT TO CHAIR. TOLERATED WELL. CONTINUES ON CLEVIPREX AT 6ML/HR. WILL WEAN OFF TOLERATED.
--- NOTE | 2018-11-10 09:26 | OP ---
PATIENT NAME: DAPHNIE CARVAJAL MEDICAL RECORD: [id number] :51 LOCATION:D.[facility] D.CV04 ADMISSION DATE:11/09/18 SURGEON: GISELA MURPHY MD DATE OF OPERATION: 11/09/2018 SURGEON: Gisela Murphy MD ASSISTANTS: 1. Keith Urias MD 2. Jayden Espinoza PROCEDURE PERFORMED: Right carotid endarterectomy. PREOPERATIVE DIAGNOSES: Bilateral carotid stenosis and coronary artery disease. POSTOPERATIVE DIAGNOSES: Bilateral carotid stenosis and coronary artery disease. ANESTHESIA: General endotracheal anesthesia. ESTIMATED BLOOD LOSS: 20 cc. COMPLICATIONS: None. SPECIMENS: Plaque. CONDITION: Stable. DISPOSITION: CV ICU. OPERATIVE FINDINGS: 1. Severely calcified plaque, feathered well distally in a CorMatrix patch closure. 2. Neurologically intact to CV ICU. OPERATIVE INDICATIONS: Bilateral carotid stenosis and coronary artery disease. DESCRIPTION OF PROCEDURE: The patient was brought to the operating suite. General anesthesia was obtained. An oblique incision was made in the right neck. Subcutaneous tissue and platysma were divided. The right common carotid artery was dissected out and encircled. The right external carotid and thyroid branch were dissected out. Hypoglossal nerve was spared from injury. The ansa was clipped. Hypoglossal was retracted upwardly to visualize the distal internal carotid artery. Heparin was given. After the heparin had circulated, backbleeding was controlled on the internal carotid. Inflow was controlled with clamp and backbleeding. The external carotid was controlled with Vesseloops. EEG was monitored for 2 minutes with no changes after interrupting the cerebral flow and the arteriotomy was begun in the common carotid artery, taken out to the region of dense plaque and into a region of relatively normal internal carotid. The endarterectomy was begun on the common carotid artery, where the plaque was divided. With eversion endarterectomy of the external carotid, the plaque feathered well distally. Thorough irrigation was undertaken. All bits of loose debris were removed. A CorMatrix patch was fashioned to the appropriate size and sutured along the edge of the arteriotomy. Prior to completing the anastomosis, backbleeding was allowed from all 3 major vessels OPERATIVE REPORT [id number] DAPHNIE CARVAJAL and then thorough irrigation of the endarterectomy bed was performed. Anastomosis was completed and flow was restored first to the external carotid and then to the internal carotid. Interrupted patch stitches were used for hemostasis. Protamine was given. Thorough irrigations were undertaken. A drain was placed through a separate stab wound. Once hemostasis was ensured, wound was closed with deep sutures of running layer on the platysma and subcuticular suture. Dermabond was placed. Needle and sponge counts were reported as correct. The patient was taken to the ICU in stable condition. The custody assistant on the case was Dr. Urias. The use of custody assistant surgeon was necessary for assisting in the endarterectomy including removing bits of debris, retracting the artery, and exposing the artery for anastomosis. TRANSINT:[id number] Voice Confirmation ID: [id number] DOCUMENT ID: [id number] GISELA MURPHY MD at 0926 CC: ANTHONY MAGALLON M.D. [id number] DICTATION DATE: 11/09/18 1625 CHECKER CASHIER: 11/09/18 2114 ADM IN [place] [id number] [place] [id number]
--- NOTE | 2018-11-10 10:35 | NUR ---
EDVIN DRAIN PULLED PER DR. MURPHY'S ORDERS. CLEVIPREX WAS AT 4ML/HR. INCREASED BACK TO 6ML/HR HR DUE TO BP IN 150S AT THIS TIME. WILL CONTINUE TO MONITOR.
--- NOTE | 2018-11-10 13:44 | NUR ---
PT RESTING IN CHAIR. STATES THAT HE IS GOING HOME TODAY. EXPLAINED TO HIM THAT HE IS STILL ON CLEVIPREX TO MAINTAIN HIS BP BELOW 140. CURRENTLY HIS CLEVIPREX IS AT 6ML/HR. WILL CONTINUE TO WEAN TOLERATED. SPOUSE AT BEDSIDE.
--- NOTE | 2018-11-10 14:33 | NUR ---
CLEVIPREX TURNED OFF AT THIS TIME.
--- NOTE | 2018-11-10 15:46 | NUR ---
BP IN 160S. TOPROL GIVEN PER ORDERS. DR. MURPHY'S NURSE RAJAT AWARE OF BLOOD PRESSURE. WILL CONTINUE TO MONITOR.
--- NOTE | 2018-11-10 16:23 | NUR ---
NITRO PATCH PLACED ON PT AT THIS TIME PER ORDERS. EXPLAINED TO PT THAT DUE TO HIS BP BEING HIGH THAT DR. MURPHY WANTS HIM TO STAY ONE MORE NIGHT. PT NOT HAPPY. EDUCATION GIVEN TO PT AND SPOUSE REGARDING REASONING FOR KEEPING HIM HERE. PT STATED HE UNDERSTOOD BUT STILL WAS DISAPPOINTED. NO FURTHER NEEDS. WILL CONTINUE TO MONITOR.
--- NOTE | 2018-11-10 18:15 | NUR ---
PT TRANSFERRED SELF BACK TO BED WITH MINIMAL ASSISTANCE. REPORT PAIN 4/10 AT INCISION SITE ON RIGHT SIDE OF NECK. TRAMADOL GIVEN PER ORDERS. ALSO COMPLAINING OF SLIGHT HEADACHE. ICE WATER PROVIDED. LIGHTS TURNED OFF.
--- NOTE | 2018-11-10 19:05 | NUR ---
Received patient resting in bed with eyes open, assessment completed per flowsheet. Patient AO x4, calm and cooperative. S1/S2 noted NSR on telemetry with HR 85, rythmic and regular. R anterior neck incision dressing CDI, no bleeding/drainage noted. Breathing is even/unlabored on room air with O2 sat 93%, lung sounds clear throughout. All pulses palpable with cap refill < 3 sec, skin warm/dry. Denies pain or other needs at this time, see flowsheet for details. All VSS and will continue to monitor.
--- NOTE | 2018-11-10 21:00 | NUR ---
Patient resting in bed with eyes closed, HS meds given without difficulty. Denies pain or other needs at this time, all VSS and will continue to monitor.
--- NOTE | 2018-11-10 23:00 | NUR ---
Reassessment completed per flowsheet, no changes from previous assessment. R anterior neck incision dressing CDI, no difficulty swallowing/breathing noted. S1/S2 noted NSR on telemetry, rythmic and regular. Breathing is even/unlabored on room air with O2 sat 93%, lung sounds clear throughout. All pulses palpable with cap refill < 3 sec, skin warm/dry. No further needs at this time, see flowsheet for details. All VSS and will continue to monitor.
[2018-11-11] VITALS (9 sets, daily range): BP systolic 123–148; BP diastolic 57–70
--- NOTE | 2018-11-11 01:00 | NUR ---
Patient sleeping in bed with eyes closed, no s/s of distress at this time. no further needs at this time, all VSS and will continue to monitor.
--- NOTE | 2018-11-11 02:55 | NUR ---
Reassessment completed per flowsheet, no changes noted from previous assessment. R anterior neck incision dressing CDI, no difficulties breathing/swallowing noted. S1/S2 noted NSR on telemetry, rythmic and regular. Breathing is even/unlabored on room air with O2 sat 92%, lung sounds clear throughout. All pulses palpable wtih cap refill < 3 sec, skin warm/dry. Denies pain or other needs at this time, see flowsheet for details. All VSS and will continue to monitor.
--- NOTE | 2018-11-11 05:00 | NUR ---
Patient up to chair at bedside, denies pain or other needs at this time. All VSS and will continue to monitor.
--- NOTE | 2018-11-11 07:00 | NUR ---
REPORT RECEVIED FROM THE OFF GOING RN. SEE ASSESSMENT IN THE PTS FLOW SHEET. NEURO CHECKS WNL. TRACHEA MIDLINE. NO S/SX OF DYSPAGIA NOTED. RIGHT NECK DRESSING C/D/I. PT ALREADY SITTING UP AT THE BEDSIDE CHAIR. VSS. BREAKFAST TRAY PROVIDED FOR THE PT. PT DENIES PAIN/NEEDS AT THIS TIME. CALL LIGHT IN REACH. PLANNING FOR DISCHARGE TODAY.
--- NOTE | 2018-11-11 08:30 | NUR ---
PT IN BED. CENTRAL LINE PULLED OUT PER ORDERS. CATHETER TIP INTACT. DRESSING APPLIED. NO S/SX OF HEMATOMA/BLEEDING NOTED. PT TOLERATED WELL. INSTRUCTE THE PT TO LIE FLAT FOR AN HOUR. PT VERBALIZED UNDERSTANDING.
--- NOTE | 2018-11-11 09:00 | NUR ---
RAJAT TURNER AT THE PTS BEDSIDE EXPLAING DISCHARGE INSTRUCTIONS WITH THE PT AND HIS .
--- NOTE | 2018-11-11 09:30 | NUR ---
DICHARGE INSTRCUTION WENT OVER WITH THE PT AND THE PTS . ALL BELONGINGS ACCOUNTED FOR. VSS. PT LEFT THE HOSPITAL WITH NO S/SX OF DISTRESS/DISCOMOFT NOTED. LEFT VIA PERSONAL VEHICHAL DRIVEN BY THE .
--- NOTE | 2018-11-11 14:20 | MORECARE ---
CASE MANAGEMENT DISCHARGE SUMMARY PATIENT: DAPHNIE CARVAJAL UNIT: [id number] ADM DATE: 11/09/18 AGE: 63 : [birth year] SEX: M [facility] AUTHOR: RON,DOC PHYSICIAN: REFERRING PHYSICIAN: GISELA MURPHY MD DATE OF SERVICE: 11/11/18 Discharge Plan Patient Name: DAPHNIE CARVAJAL Facility: [facility]:[place] : 1955 Planned Disposition: Home Anticipated Discharge Date: Discharge Date: 11/11/2018 Expected LOS: Initial Reviewer: [email or web address] Initial Review Date: 11/09/2018 Generated: 11/11/18 3:20 pm Comments DCP- Discharge Planning Updated by [email or web address]: Moira Menendez on 11/09/18 3:[address] Patient Name: DAPHNIE CARVAJAL Admission Status: Elective Accout number: [id number] Admission Date: 11-09-2018 : 1955 Admission Diagnosis: Attending: GISELA MURPHY Current LOS: 1 Anticipated DC Date: Planned Disposition: Home Primary Insurance: MEDICARE A & B Discharge Planning Comments: CM met with patient and spouse Soo at bedside. Patient states he lives at home with his . Patient plans to return to his home upon discharge. Denies any discharge needs. CM will continue to follow and assist as needed with discharge planning/ needs. Fisher Crab: Moira Menendez DCPIA - Discharge Planning Initial Assessment Updated by [email or web address]: Moira Menendez on 11/09/18 4:24 pm * Is the patient Alert and Oriented? Yes * How many steps to enter\exit or inside your home? * PCP TRAVON RAE [facility]N @ [facility] * Pharmacy [facility] * Preadmission Environment Home with Family * ADLs Independent * Equipment None * List name and contact numbers for known caregivers / representatives who currently or will assist patient after discharge: SOO CARVAJAL - SPOUSE- [phone] * Verbal permission to speak to the caregivers and representatives has been obtained from the patient. Yes * Community resources currently utilized None * Additional services required to return to the preadmission environment? No * Can the patient safely return to the preadmission environment? Yes * Has this patient been hospitalized within the prior 30 days at any hospital? No Coverage Notice Reviewer: [email or web address] Faye Menendez Notice Issued Date-Time: 11/10/2018 15:55 Notice Type: IM Discharge Notice Notice Delivered To: Patient Relationship to Patient: Self Receiver/Laborer Name: Delivery Method: HAND - Hand Delivered Claribel Days: Prior Verbal Notification: Recipient Understood Notice: Yes Recipient Signature: Yes Med Rec Note Co-signed by Attending: Coverage Notice Comment: Last DP export: 11/09/18 3:34 pm Patient Name: DAPHNIE CARVAJAL Page [phone] at 1420 All edits/amendments must be made on the electronic document DICTATION DATE: 11/11/181419 SECURITY SERVICES MANAGER: FABRICIO 11/11/18 1420 RPT#: [id number] DC DATE:11/11/18 STATUS: DIS IN [facility] [address] [place] [address] END OF REPORT
== END 2018-11-11 10:31 | disposition home or self-care (01) | DRG 39 ==
LOC: D.SDCHOLD 11-09 05:00 → D.CVICU 11-09 05:00 → D.SDCHOLD 11-09 07:30 → D.CVICU 11-09 10:48
PROVIDERS: ADMIT Thoracic Surgery (Cardiothoracic Vascular Surgery)
PROC: 03UK0JZ Supplement Right Internal Carotid Artery with Synthetic Substitute, Open Approach (ICD-10-PCS; 2018-11-09)
PROC: 03CK0ZZ Extirpation of Matter from Right Internal Carotid Artery, Open Approach (ICD-10-PCS; principal; 2018-11-09 07:30)
DX: I65.23 Occlusion and stenosis of bilateral carotid arteries (principal); I25.10 Atherosclerotic heart disease of native coronary artery without angina pectoris; I10 Essential (primary) hypertension

== ENCOUNTER 2018-11-19 08:43 | Inpatient (IN) | payer MEDICARE, BC ==
[~2018-11-19] VITALS: Ht 170.2 cm; Wt 79.6 kg
[2018-11-19 10:21] LABS: BASOPHILS 1.2 % (0-2); EOSINOPHILS 7.2 % (0-7); HEMOGLOBIN 14.1 g/dL (13.5-17.5); IMMATURE GRANULOCYTES 0.8 % (0-5); MCH 32.5 pg (26.0-34.0); MCHC 33.6 g/dL (31.0-37.0); MCV 96.8 fL (80.0-100.0); MONOCYTES 9.2 % (2-11); NEUTROPHILS 51.6 % (40-80); PLATELET COUNT 173 10x3/uL (130-400); RBC 4.34 10x6/uL (4.20-6.10); RDW 12.7 % (11.5-14.5); WBC 8.9 10x3/uL (4.8-10.8)
[2018-11-19 10:23] LABS: APPEARANCE CLEAR (CLEAR); BILIRUBIN NEGATIVE (NEGATIVE); COLOR YELLOW (YELLOW); GLUCOSE NEGATIVE (NEGATIVE); KETONE NEGATIVE (NEGATIVE); NITRITE NEGATIVE (NEGATIVE); PROTEIN NEGATIVE (NEGATIVE); SPECIFIC GRAVITY 1.005 (1.005-1.020); UROBILINOGEN NORMAL (NORMAL)
[2018-11-19 10:25] LABS: APTT 40.3 SECONDS (22.8-39.4); INR 1.06 (0.85-1.17); PROTIME 13.3 SECONDS (11.6-15.0)
[2018-11-19 10:37] LABS: ALBUMIN 3.6 g/dL (3.4-5.0); ALKALINE PHOSPHATASE 152 U/L (46-116); ALT (SGPT) 36 U/L (10-68); BILIRUBIN - TOTAL 0.54 mg/dL (0.2-1.3); CALC OSMOLALITY 277 mosm/kg (275-300); CALCIUM 9.2 mg/dL (8.5-10.1); CARBON DIOXIDE 29.6 mmol/L (21.0-32.0); CHLORIDE - SERUM 103 mmol/L (98-107); CHOLESTEROL, TOTAL 271 mg/dL (0-200); GLUCOSE 107 mg/dL (74-106); PHOSPHOROUS 3.4 mg/dL (2.5-4.9); POTASSIUM - SERUM 4.4 mmol/L (3.5-5.1); SODIUM 140 mmol/L (136-145); T4 THYROXIN - FREE 1.17 ng/dL (0.76-1.46); THYROID STIMULATING HORMONE 2.68 uIU/mL (0.36-3.74); UREA NITROGEN 10 mg/dL (7-18); eGFR NON AFRICAN AMERICAN 80 mL/min (90-120)
[2018-11-23] VITALS (44 sets, daily range): BP systolic 91–142; BP diastolic 38–64; BMI 23.0; BMI 26.3
--- NOTE | 2018-11-23 14:04 | NUR ---
PT ARRIVED IN THE UNIT. PT HOOKED TO ICU MONITORS. PT SEDATED AND ON THE VENTILATOR. 7.5 ETT 22 AT THE LIP. SEE RT SHEET FOR VENT SETTINGS. PT NORMAL SINUS ON THE MONITOR. RIGHT SUBCLAVIAN CVL NOTED. PLASMALYTE, NITRO, AMIODORONE INFUSING. ZINACEF AND THE BURETROL WAS STARTED SHORLY AFTER ARRIVAL. SEE IV FLOW SHEET/MAR FOR FLOW RATE. NITRO TITRATED PER BP PER ORDERS. MIDSTERNAL DRESSING C/D/I. SUBSTERNAL DRESSING C/D/I WITH TPM WIRES COILED. CT X2 NOTED LABLED A & P. BOTH CONNECTED TO 20 CM SUCTION WITH NO AIR LEAK. LEFT SUBSTERNAL MELECIO DRAIN NOTED COMPRESSED WITH BLOODY DRAINAGE NOTED. DRESSING C/D/I. LEFT RADIAL ROME NOTED WITH THE WRIST PROTECTOR ON. CAP REFILL <3 SECONDS. DRESSING C/D/I. FC NOTED WITH YELLOW/MEL URINE NOTED. LEFT LEG HARVEST NOTED WITH KOBAN FROM ANKLE TO THIGH NOTED. DRESSING C/D/I. BILATERAL FEET PULSES PALPABLE. VSS AT THIS TIME. WILL MONITOR AND PROVIDED 1:1 CARE.
--- NOTE | 2018-11-23 14:25 | NUR ---
CXR AT THE PTS BEDSIDE. DR MURPHY LOOKED AT CXR. NO NEW ORDERS.
--- NOTE | 2018-11-23 14:30 | NUR ---
ABG'S OBTAINED PER ORDERS VIA RT. DR MURPHY REVIEWED RESULTS. NO NEW ORDERS AT THIS TIME.
--- NOTE | 2018-11-23 15:38 | NUR ---
PT MAXED OUT ON NITRO. BP RISING OCCASIONALLY ABOVE SBP 140. DR MURPHY PAGED AND UPDATED ON THE PT. ONE TIME ORDER FOR METOPROLOL 2.5 IV X1 DOSE.
--- NOTE | 2018-11-23 15:45 | NUR ---
PT AROUSING TO VOICE BUT REMAINS VERY DROWSEY. WILL MONITOR. VSS AT THIS TIME. WILL CONT POC.
--- NOTE | 2018-11-23 16:30 | NUR ---
PT ABLE TO ANSWER YES AND NO QUESTIONS, ELLA IS HIS TOES ON COMMAND BUT REMAINS TO HAVE A DIFFICULT STAYING AWAKE, SQUEEZING BILATERAL HANDS. PT IS BREATHING OVER THE VENT 23 RESP/MIN. VSS AT THIS TIME. WILL CONT POC.
--- NOTE | 2018-11-23 17:23 | NUR ---
PT OPENING EYES ON COMMAND AND WIGGILING TOES ON COMMAND. PT ABLE TO ANSWER YES AND NO QUESTIONS. PT MOVING ALL EXTRIMITES AND ABLE TO SHAKE HIS HAND WHENEVER ASKED TO DO SO BUT HE WILL NOT SQUEEZE MY HAND ON COMMAND. ABG'S OBTAINED PER RT. RT CHANGED PT TO CPAP MODE ON THE VENT. WILL MONITOR.
--- NOTE | 2018-11-23 18:00 | NUR ---
ABG'S OBTAINED VIA RT. DR MURPHY CALLED AND NOTIFIED. DR MURPHY OK'D TO EXTUBATE.
--- NOTE | 2018-11-23 18:08 | NUR ---
PT EXTUBATED AND PLACED ON 4L VIA NC. PT INSTRUCTED TO TCDB. VSS AT THIS TIME.
--- NOTE | 2018-11-23 18:15 | NUR ---
PT ABLE TO TALK BUT HAS A SLURRED SPEACH. PT ABLE TO RAISE BOTH OF HIS ARMS AND HAS A SIGNIFICANTLY WEAKER TELEPHONE ANSWERER ON HIS RIGHT THAN HIS LEFT. ABLE TO MOVE BLE EQUALLY. FACE SYMETRICAL. EYES PERRLA. PT A&OX4. BUT THE PT STATES THAT SOMETHING IS WRONG THAT HE CANNOT MOVE HIS ARMS CORRECLY. DR MURPHY CALLED AND NOTIFIED OF THIS FINDING WITH NO NEW ORDERS.
--- NOTE | 2018-11-23 18:50 | NUR ---
PT TOLERATING PO FLUIDS WELL. PO TYLENOL GIVEN FOR FEVER. PT DENIES PAIN. NO S/SX OF DYSPAGIA NOTED. WILL CONT POC.
--- NOTE | 2018-11-23 18:53 | NUR ---
PT CONT TO MOVE ALL EXTRMITIES. RIGHT HAND REAMING MACHINE TENDER REMAINS EXTREAMLY WEAK. PT STATES HE IS ABLE TO FEEL HIS ARMS BUT THEY ARE BOTH JUST WEAK. VSS AT THIS TIME. CALL LIGHT IN REACH. WILL CONT POC.
--- NOTE | 2018-11-23 19:15 | NUR ---
REC'D TO CARE, TRIPLE VALVE TESTER PER FLOWSHEET. PT AWAKE, ORIENTED, EDGAR AND SPEECH IMPROVING. VSS. IVFS INFUSING TO R DLSC, DSG C/D/I - SEE FLOWSHEET. L RADIAL A-LINE FLUSHED AND ZEROED WITH POSITIONAL WAVE FORM NOTED. CM - SR. INCISIONS/DSGS PER FLOWSHEET. ALARMS ON AND C/L IN REACH.
--- NOTE | 2018-11-23 19:45 | NUR ---
DR. MURPHY NOTIFIED OF SBP 90S, UOP LAST HOUR 10ML. NEURO SEEMS IMPROVED, EDGAR WEAK UPPER EXTR, R WEAKER THAN L. SITTING UP AND DRINKING WATER. NEW ORDERS REC'D. 100 ML NS BOLUS GIVEN AND WILL START NEOSYNEPHRINE GTT AND TITRATE FOR SBP 105-120.
--- NOTE | 2018-11-23 20:09 | NUR ---
AT BS, REPORTS "HE LOOKS ALOT BETTER THAN LAST TIME I WAS IN HERE." TITRATING NONA PER ORDERS. PT ALERT, ARMS STILL WEAK, ENCOURAGED TO MOVE THEM.
--- NOTE | 2018-11-23 21:30 | NUR ---
DR. MURPHY NOTIFIED OF SBP 90-105. UOP 22 LAST HOUR. NEW ORDERS REC'D.
--- NOTE | 2018-11-23 21:47 | NUR ---
AGB CALLED TO DR. MURPHY. WILL TREAT BE -5 PER ORDERS AND REPEAT ABG IN 1 HOUR
--- NOTE | 2018-11-23 22:52 | NUR ---
NEW ABGS CALLED TO DR. MURPHY, STATUS UPDATE GIVEN, NEURO STATUS IMPROVED. WILL TREAT ICA PER S/S. NO OTHER ORDERS.
--- NOTE | 2018-11-23 23:09 | NUR ---
REASSESSMENT PER FLOWSHEET, PREV NOTED NEURO IMPROVING, STRENGTH IN HAND GRASP IMPROVED AND EQUAL AT THIS TIME. RT AT BS FOR RESP TX. I.S. 1000. WEANING FIO2 PER ORDERS. PT REPOSITIONED FOR COMFORT. ALARMS ON AND C/L IN REACH.
--- NOTE | 2018-11-23 23:59 | NUR ---
PT RESTING QUIETLY, VSS. WEANING NONA GTT TOLERATED.
[2018-11-24] VITALS (45 sets, daily range): BP systolic 100–155; BP diastolic 43–68; Ht 170.2 cm; Wt 79.6 kg
--- NOTE | 2018-11-24 03:04 | NUR ---
REASSESSMENT PER FLOWSHEET, NO ACUTE CHANGES. PT AWAKE AND ALERT, NEURO WNL. CONT TO WEAN NONA TOLERATED. ADMIN PRN ULTRAM PER PRN ORDER. PT DENIES OTHER NEEDS. C/L IN REACH.
--- NOTE | 2018-11-24 05:39 | NUR ---
PT DANGLED AT BS, VSS. UP TO CHAIR WITH MINIMAL ASSIST. NONA GTT OFF AT THIS TIME. AT BS. ALARMS ON AND C/L IN REACH.
[2018-11-24 05:41] LABS: HEMATOCRIT 33.4 % (42.0-54.0); HEMOGLOBIN 11.3 g/dL (13.5-17.5); MCH 32.9 pg (26.0-34.0); MCHC 33.8 g/dL (31.0-37.0); MCV 97.4 fL (80.0-100.0); MEAN PLATELET VOLUME 10.3 fL (7.4-10.4); RBC 3.43 10x6/uL (4.20-6.10); RDW 13.7 % (11.5-14.5); WBC 30.3 10x3/uL (4.8-10.8)
[2018-11-24 06:04] LABS: ALBUMIN 2.7 g/dL (3.4-5.0); ANION GAP 17.7 mmol/L (8-16); BILIRUBIN - TOTAL 0.93 mg/dL (0.2-1.3); CALCIUM 7.8 mg/dL (8.5-10.1); CARBON DIOXIDE 21.8 mmol/L (21.0-32.0); CREATININE - SERUM 1.7 mg/dL (0.6-1.3); POTASSIUM - SERUM 4.5 mmol/L (3.5-5.1); PROTEIN - SERUM 5.6 g/dL (6.4-8.2)
--- NOTE | 2018-11-24 07:15 | NUR ---
REPORT RECEIVED. PT UP IN CHAIR. ON ROOM AIR. RIGHT SUBCLAVIAN CVL. DRESSING C/D/I. SEE IV FLOWSHEET. MIDSTERNAL AND SUBSTERNAL DRESSING C/D/I. SUBSTERNAL CHEST TUBE X2 TO SUCTION WITH NO AIR LEAK. SUBSTERNAL MELECIO DRAIN COMPRESSED. TPM WIRE COILED UNDER DRESSING. LEFT RADIAL A LINE WITH GOOD WAVE FORM. WRIST PROTECTOR IN PLACE. MORGAN DRAINING YELLOW URINE. LLE HARVEST SITES WITH DRESSING C/D/I. DENIES ANY PAIN. DEMONSTRATED USE OF IS. WILL CONTINUE TO MONITOR.
--- NOTE | 2018-11-24 09:43 | NUR ---
0900 TOOK AM MEDS WITHOUT DIFFICULTY 0930 ART LINE DCD PER PROTOCOL NO SINGS OF BLEEDING
--- NOTE | 2018-11-24 12:00 | NUR ---
PT ATE 75% OF LUNCH DENIES ALL NEEDS
--- NOTE | 2018-11-24 13:13 | OP ---
PATIENT NAME: DAPHNIE CARVAJAL MEDICAL RECORD: [id number] :[birth year] LOCATION:[facility] D.CV01 ADMISSION DATE:11/23/18 SURGEON: KAI MURPHY MD DATE OF OPERATION: 11/23/2018 SURGEON: Kai Murphy MD MANAGER ENERGY: PRATIBHA Urias MD and Jayden Espinoza OPERATION PERFORMED: 1. Coronary artery bypass graft times 5 (left internal mammary artery to LAD, reverse saphenous vein graft from aorta to obtuse marginal, from the side of that vein graft to the first diagonal distally, aorta to posterior descending artery sequenced on to posterolateral branch of right coronary artery). 2. Endoscopic saphenous vein harvest. PREOPERATIVE DIAGNOSIS: Coronary artery disease. POSTOPERATIVE DIAGNOSES: Coronary artery disease status post bilateral carotid endarterectomies. ANESTHESIA: General endotracheal anesthesia. ESTIMATED BLOOD LOSS: Total cardiopulmonary bypass with Cell Saver retransfusion. COMPLICATIONS: None. SPECIMENS: None. CONDITION: Stable. DISPOSITION: CV ICU. OPERATIVE FINDINGS: 1. Incision of the right leg did not reveal any sizable greater saphenous vein, no vein was removed and the greater saphenous vein was found on the left with endoscopic harvest of the left thigh and two bridging incisions below this level in the upper calf for complete vein harvest. 2. Luis's test on the patient's nondominant right upper extremity utilizing pulse oximetry waveforms demonstrated incomplete return of waveform to the thumb and index finger. Therefore, the radial artery was not harvested. 3. Severe distal disease in all vessels. The LAD was a 1.0-1.25 mm vessel and only a 1.0-mm probe would pass distally to the apex, anastomosis in the area of least plaque, but still severe posterior plaque. 4. First diagonal was a 1.25-mm vessel, this was the more distal part of the bifurcating vessel. The ramus intermedius appeared to be intramyocardial. 5. Obtuse marginal 1.5-mm with severe disease. 6. Posterior descending artery was 1.25-mm with severe disease and was a [id number] sequential to posterolateral right coronary artery 1.5-mm with severe disease. 7. Transesophageal echocardiography with good contractility, mild tricuspid regurgitation. INDICATION: Coronary artery disease. OPERATIVE REPORT [id number] DAPHNIE CARVAJAL PROCEDURE IN DETAIL: The patient was brought to the operative suite. General anesthesia was obtained. The patient was prepped and draped. Greater saphenous vein harvested as listed above. Electrocautery was used in the left thigh. The web press operator assistant for the case was Dr. Urias. He harvested the vein, tied the side branches, oversewed any thin sites and his participation of the case saved 30-45 minutes of general anesthetic time. Later, the leg was closed in 2 layers and wrapped with elastic wrap. Mediastinotomy incision was made. The subcutaneous tissue was divided with electrocautery. The sternum was divided with a saw. Left hemisternum was elevated. The pleural cavity was entered. Left internal mammary vein was taken as a pedicle graft. Sternal retractor was placed. Pericardium was opened. Heparin was given. Aorta was cannulated. Dual stage venous cannula was inserted. The internal mammary was clipped distally and made ready for anastomosis. Activated clotting time was appropriately elevated. The patient was placed on cardiopulmonary bypass. Sites for distal anastomoses were selected. Antegrade cardioplegia cannula was inserted. Crossclamp was placed. Cardioplegia given antegrade and this repeated at 15-20 minute intervals including down the completed vein grafts. Distal anastomosis was performed in standard technique. Proximal anastomosis with single cross-clamp technique. Single [id number] proximal anastomosis utilizing the diagonal graft to the obtuse marginal graft. The patient resumed a spontaneous rhythm, weaned from cardiopulmonary bypass and after full rewarming and was stable. The patient was decannulated. Aortic annulus was oversewn with a non-pledgeted Prolene suture. Thorough irrigation was undertaken gradually appropriately. Hemostasis was assured. Protamine was given. The internal mammary harvest site was inspected for bleeding. A drain was placed in the mediastinum and on both left pleural cavity. The left chest was evacuated and irrigated. Pericardial fat was loosely reapproximated in the midline. Sternum was closed with wires. Fascia was closed. Subcutaneous tissue was closed. Skin was closed. Dermabond was placed. The needle and sponge count was reported as correct. Additionally, a ventricular pacing wire had been placed. The patient was stable to the CV ICU. TRANSINT:[id number] Voice Confirmation ID: [id number] DOCUMENT ID: [id number] KAI MURPHY MD at 1313 CC: ANTHONY MAGALLON M.D. [id number] DICTATION DATE: 11/23/18 1432 SHOP WORKER: 11/23/18 1541 ADM IN [facility] [address] [place] [id number]
--- NOTE | 2018-11-24 13:50 | NUR ---
CHEST TUBES PULLED BY DR KATHERINE FARRELL'S NURSE. PT TOLERATED WELL. SUBSTERNAL DRESSING CHANGED. PT LAYING IN BED WITH NO OTHER COMPLAINTS AT THIS TIME. CALL LIGHT IN REACH.
--- NOTE | 2018-11-24 15:45 | NUR ---
JOHANNA DRAIN OUTPUT 20ML. PT UP TO CHAIR. NO COMPLAINTS AT THIS TIME. CALL LIGHT IN REACH.
--- NOTE | 2018-11-24 17:45 | NUR ---
PT FINISHED DINNER. MOVED TO BED. ENCOURAGED TO COUGH AND DEEP BREATHE. PASTE APPLIED TO BUTTOCKS. BED IN LOWEST POSITION. SIDE RAILS UP X2. CALL LIGHT IN REACH.
--- NOTE | 2018-11-24 18:26 | NUR ---
PT FALLING ASLEEP. SATS DROPPED INTO UPPER 80S. O2 VIA NC APPLIED AT 2L. SAT RETURNED TO 94%.
--- NOTE | 2018-11-24 19:00 | NUR ---
PT AOX4, PUPILS EQUAL AND REACTIVE. COUNSELING DIRECTOR EQUAL, MOVES EXTREMITIES X4 AGAINST GRAVITY. RESPIRATIONS SHALLOW, LUNG SOUNDS CRACKLES THROUGHOUT, MINIMAL ASSISTANCE WITH ORAL CARE PRVIDED. S1S2 HEARD, PERIPHERAL PULSES PRESENT. BOWEL SOUNDS ACTIVE IN ALL QUADRANTS. MORGAN CATH INTACT WITH URINE TO BEDSIDE DRAINAGE. PT REPOSITIONED FOR COMFORT. VSS. I/S COMPLETED REACHING UP 750 X10. COUGH/DB ENCOURAGED, PRODUCTIVE COUGH PRESENT, CLEAR/WHITE SPUTUM. DENIES FURTHER NEEDS AT THIS TIME. CALL LIGHT WITHIN PT REACH. CPOC.
--- NOTE | 2018-11-24 20:15 | NUR ---
HS MEDS GIVEN INCLUDING PRN PAIN MEDICATION UPON REQUEST, RATES PAIN 4/10. FRESH WATER TO BEDSIDE. VSS, PT DENIES REPOSITIONING AT THIS TIME. IS/COUGH/DB COMPLETED WITH GOOD EFFORT AT THIS TIME. CALL LIGHT WITHIN PT REACH. CPOC.
--- NOTE | 2018-11-24 22:00 | NUR ---
NO VISITORS DURING VISITATION
--- NOTE | 2018-11-24 23:00 | NUR ---
REASSESSMENT COMPELTE, NO NEW CHANGES AT THIS TIME. PT REPOSITIONED FOR COMFORT. VSS. COUGH/DB WITH GOOD EFFORT. I/S COMPLETED REACHING 750-500 X10. DENIES NEEDS AT THIS TIME. CALL LIGHT WITHIN PT REACH. CPOC.
[2018-11-25] VITALS (24 sets, daily range): BP systolic 109–150; BP diastolic 50–85
--- NOTE | 2018-11-25 01:00 | NUR ---
PT RESTING QUIETLY WITH NO S/S OF DISTRESS. VSS, PT REPOSITIONED SELF INDEPENDENTLY. COUGH/DB WITH GOOD EFFORT. CPOC.
--- NOTE | 2018-11-25 03:00 | NUR ---
REASSESSMENT COMPLETE, NO NEW CHANGES AT THIS TIME. VSS, NO C/O PAIN AT THIS TIME. COUGH/DB WITH GOOD EFFORT. I/S COMPLETED REACHING 750 X10. PT REPOSITIONED FOR COMFORT. DENIES FURTHER NEEDS AT THIS TIME. CALL LIGHT WITHIN PT REACH. CPOC.
--- NOTE | 2018-11-25 05:00 | NUR ---
PT REPOSITIONED WITH PROMINENCES BRIDGED. ORAL CARE PROVIDED. VSS, NO S/S OF DISTRESS OR PAIN NOTED AT THIS TIME. ROOM VISIBLE FROM NURSES STATION, CPOC.
[2018-11-25 06:33] LABS: BASOPHILS 0.3 % (0-2); EOSINOPHILS 0.3 % (0-7); HEMOGLOBIN 9.6 g/dL (13.5-17.5); IMMATURE GRANULOCYTES 0.3 % (0-5); LYMPHOCYTES 16.5 % (15-50); MCH 32.4 pg (26.0-34.0); MCHC 33.1 g/dL (31.0-37.0); MEAN PLATELET VOLUME 10.7 fL (7.4-10.4); MONOCYTES 8.6 % (2-11); RBC 2.96 10x6/uL (4.20-6.10); RDW 13.5 % (11.5-14.5)
[2018-11-25 06:38] LABS: PLATELET COUNT 107 10x3/uL (130-400); WBC 18.5 10x3/uL (4.8-10.8)
[2018-11-25 06:44] LABS: ALBUMIN 2.6 g/dL (3.4-5.0); ANION GAP 13.7 mmol/L (8-16); BILIRUBIN - TOTAL 0.94 mg/dL (0.2-1.3); CALCIUM 7.8 mg/dL (8.5-10.1); CARBON DIOXIDE 26.7 mmol/L (21.0-32.0); CREATININE - SERUM 1.4 mg/dL (0.6-1.3); POTASSIUM - SERUM 4.4 mmol/L (3.5-5.1); PROTEIN - SERUM 5.7 g/dL (6.4-8.2)
--- NOTE | 2018-11-25 07:30 | NUR ---
REPORT RECEIVED. PT UP IN CHAIR. AOX4. RIGHT SUBCLAVIAN WITH PLASMALYTE INFUSING @ 100. MIDSTERNAL DRESSING C/D/I. SUBSTERNAL DRESSING C/D/I. MELECIO DRAIN IN PLACE. TEMPORARY WIRES UNDER DRESSING. LEFT LEG HARVEST SITES COVERED WITH 4X4S. MORGAN IN PLACE. 0830-AM MEDS TAKEN WITH NO ISSUES. PASTE APPLIED TO BUTTOCKS. EATING BREAKFAST. AT BEDSIDE. PAIN MEDICATION GIVEN FOR PT TO WORK WITH PHYSICAL THERAPY THIS AM.
--- NOTE | 2018-11-25 09:34 | NUR ---
PT AMBULATED WITH THERAPY, TOLERATED WELL, SPO2 88 WHEN RETURNED, PLACED ON O2 2L NC AND SPO2 RETURNED TO 90S
--- NOTE | 2018-11-25 10:08 | NUR ---
MORGAN CATH REMOVED PER ORDER. 10ML PULLED FROM BALLOON IN BLADDER. TIP INTACT. PT TOLERATED WELL. PROVIDED PT WITH URINAL TO VOID IN. NO OTHER NEEDS AT THIS TIME.
--- NOTE | 2018-11-25 11:50 | NUR ---
PT UP IN CHAIR. WEARING O2 AT 2L. NO COMPLAINTS. 1215-PT UP EATING LUNCH
--- NOTE | 2018-11-25 13:15 | NUR ---
WALKED WITH PT. WALKED 250 FT WEARING O2 AT 2L. TOLERATED WELL. NO COMPLAINTS OR NEEDS AT THIS TIME.
--- NOTE | 2018-11-25 15:22 | MORECARE ---
CASE MANAGEMENT DISCHARGE SUMMARY PATIENT: DAPHNIE CARVAJAL UNIT: [id number] ADM DATE: 11/23/18 AGE: 63 : 51 SEX: M ROOM/BED: [facility] AUTHOR: COLLINS VELASQUEZ PHYSICIAN: REFERRING PHYSICIAN: GISELA MURPHY MD DATE OF SERVICE: 11/25/18 Discharge Plan Patient Name: DAPHNIE CARVAJAL [facility] : 1955 Planned Disposition: Home Anticipated Discharge Date: Discharge Date: Expected LOS: Initial Reviewer: [email or web address] Initial Review Date: 11/23/2018 Generated: 11/25/18 4:22 pm Patient Name: DAPHNIE CARVAJAL Page [phone] at 1522 All edits/amendments must be made on the electronic document DICTATION DATE: 11/25/18 1522 SMALL MACHINE BINDERY OPERATOR: FABRICIO 11/25/18 1522 RPT#: [id number] DC DATE: STATUS: ADM IN [facility] [address] [place] [address] END OF REPORT
--- NOTE | 2018-11-25 15:32 | MORECARE ---
CASE MANAGEMENT DISCHARGE SUMMARY PATIENT: DAPHNIE CARVAJAL UNIT: [id number] ADM DATE: 11/23/18 AGE: 63 : 51 SEX: M ROOM/BED: [facility] AUTHOR: COLLINS VELASQUEZ PHYSICIAN: REFERRING PHYSICIAN: GISELA MURPHY MD DATE OF SERVICE: 11/25/18 Discharge Plan Patient Name: DAPHNIE CARVAJAL [facility] : 1955 Planned Disposition: Home Anticipated Discharge Date: Discharge Date: Expected LOS: Initial Reviewer: [email or web address] Initial Review Date: 11/23/2018 Generated: 11/25/18 4:32 pm DCPIA - Discharge Planning Initial Assessment Updated by [email or web address]: Moira Menendez on 11/25/18 3:31 pm * Is the patient Alert and Oriented? Yes * How many steps to enter\exit or inside your home? * PCP TRAVON RAE APN * Pharmacy [facility] * Preadmission Environment Home with Family * ADLs Independent * Equipment None * List name and contact numbers for known caregivers / representatives who currently or will assist patient after discharge: MEMO CARVAJAL - SPOUSE- [phone] * Verbal permission to speak to the caregivers and representatives has been obtained from the patient. Yes * Community resources currently utilized None * Additional services required to return to the preadmission environment? No * Can the patient safely return to the preadmission environment? Yes * Has this patient been hospitalized within the prior 30 days at any hospital? Yes Last DP export: 11/25/18 2:22 p Patient Name: DAPHNIE CARVAJAL Page 42732 at 1532 All edits/amendments must be made on the electronic document DICTATION DATE: 11/25/181530 LOADING INSPECTOR: FABRICIO 11/25/18 153 RPT#: [id number] DC DATE: STATUS: ADM IN [facility] [address] [place] [address] END OF REPORT
--- NOTE | 2018-11-25 15:43 | MORECARE ---
CASE MANAGEMENT DISCHARGE SUMMARY PATIENT: DAPHNIE CARVAJAL UNIT: [id number] ADM DATE: 11/23/18 AGE: 63 : 51 SEX: M ROOM/BED: D[facility] AUTHOR: RON,DOC PHYSICIAN: REFERRING PHYSICIAN: GISELA MURPHY MD DATE OF SERVICE: 11/25/18 Discharge Plan Patient Name: DAPHNIE CARVAJAL Facility: [facility]:[place] : 1955 Planned Disposition: Home Anticipated Discharge Date: Discharge Date: Expected LOS: Initial Reviewer: [email or web address] Initial Review Date: 11/23/2018 Generated: 11/25/18 4:43 pm Comments DCP- Discharge Planning Updated by [email or web address]: Moira Menendez on 11/25/18 2:[address] Patient Name: DAPHNIE CARVAJAL Admission Status: Elective Accout number: [id number] Admission Date: 11-23-2018 : 1955 Admission Diagnosis:ATHSCL HEART DISEASE OF [place] CORONARY ARTERY W/O ANG Attending: GISELA MURPHY Current LOS: 2 Anticipated DC Date: Planned Disposition: Home Primary Insurance: MEDICARE A & B Discharge Planning Comments: CM met with patient at bedside after obtaining verbal consent. Patient states he plans on returning home after discharge with his . Patient states he will have family transport him home via private vehicle. Patient denies any discharge needs at this time. CM will continue to follow and assist as needed for discharge planning / needs. Gardener Florist: Moira Menendez DCPIA - Discharge Planning Initial Assessment Updated by [email or web address]: Moira Menendez on 11/25/18 3:31 pm * Is the patient Alert and Oriented? Yes * How many steps to enter\exit or inside your home? * PCP TRAVON RAE APN * Pharmacy [facility] * Preadmission Environment Home with Family * ADLs Independent * Equipment None * List name and contact numbers for known caregivers / representatives who currently or will assist patient after discharge: MEMO CARVAJAL - SPOUSE- [phone] * Verbal permission to speak to the caregivers and representatives has been obtained from the patient. Yes * Community resources currently utilized None * Additional services required to return to the preadmission environment? No * Can the patient safely return to the preadmission environment? Yes * Has this patient been hospitalized within the prior 30 days at any hospital? Yes Last DP export: 11/25/18 2:32 p Patient Name: DAPHNIE CARVAJAL Page [phone] at 1543 All edits/amendments must be made on the electronic document DICTATION DATE: 11/25/181541 GROUP EXERCISE MANAGER: FABRICIO 11/25/181541 RPT#: [id number] DC DATE: STATUS: ADM IN [facility] [address] [place] [address] END OF REPORT
--- NOTE | 2018-11-25 15:45 | NUR ---
PT SITTING UP IN CHAIR. JOHANNA DRAIN OUTPUT IS 20ML OF SEROSANGUINOUS FLUID. PT HAS NO NEEDS AT THIS TIME. WILL CONTINUE TO MONITOR.
--- NOTE | 2018-11-25 17:37 | NUR ---
PT ASSISTED TO BED. SUBSTERNAL DRESSING OVER CHEST TUBE SITES AND JOHANNA DRAIN CHANGED. TEMPORARY PACER WIRES IN PLACE. PT TOLERATED WELL. NO OTHER NEEDS AT THIS TIME. BED IN LOWEST POSITION. URINAL NEAR PT. CALL LIGHT IN REACH.
--- NOTE | 2018-11-25 19:00 | NUR ---
REPORT RECEIVED AND ASSESSMENT CONMPLETED. SEE FLOWSHEET FOR FULL DETAILS.
--- NOTE | 2018-11-25 22:47 | NUR ---
REASSESMENT COMPLETED. SEE FLOWSHEET FOR FULL DETAILS. VSS. WILL CONTINUE TO MONITOR
[2018-11-26] VITALS (24 sets, daily range): BP systolic 101–169; BP diastolic 50–69
[2018-11-26 06:00] LABS: HEMATOCRIT 27.9 % (42.0-54.0); HEMOGLOBIN 9.4 g/dL (13.5-17.5); LYMPHOCYTES 22.1 % (15-50); MCH 33.1 pg (26.0-34.0); MCHC 33.7 g/dL (31.0-37.0); MCV 98.2 fL (80.0-100.0); NEUTROPHILS 69.7 % (40-80); PLATELET COUNT 110 10x3/uL (130-400); RBC 2.84 10x6/uL (4.20-6.10); RDW 13.2 % (11.5-14.5); WBC 14.7 10x3/uL (4.8-10.8)
[2018-11-26 06:08] LABS: ALBUMIN 2.4 g/dL (3.4-5.0); ANION GAP 9.1 mmol/L (8-16); BILIRUBIN - TOTAL 0.63 mg/dL (0.2-1.3); CALCIUM 8.4 mg/dL (8.5-10.1); CREATININE - SERUM 1.1 mg/dL (0.6-1.3); POTASSIUM - SERUM 4.1 mmol/L (3.5-5.1); PROTEIN - SERUM 6.1 g/dL (6.4-8.2)
--- NOTE | 2018-11-26 10:07 | NUR ---
0715-RECIEVED AWAKE AND ALERT-VERBALLY APPROPRIATE-SITTING UP IN CHAIR-REQUESTED PAIN MEDICATION FOR 05/14 0850-O2 SAT 99--PLACED ON ROOM AIR 0930-AMBULATED ON ROOM AIR-SR ON MONITOR-92%-REMAINS ON ROOM AIR-ENCOURAGED TO USE-PT VERY COMPLIANT-[id number] TV
--- NOTE | 2018-11-26 10:49 | NUR ---
Nutrition Follow Up: Pt was asleep at the time of RD visit. Interview deferred at this time. Diet advancing to AHA as tolerated. Noted pt is POD 3 CABG. BM: 11/26/18 Wt stable I>O Labs and meds reviewed Rec continue current diet as tolerated. RD following.
--- NOTE | 2018-11-26 16:34 | NUR ---
1100-SITTING UP IN CHAIR-DR GUTIERREZ AT [facility]-NOTED AUDIBLE 2/6 MURMUR-CONFIRMED SAME FINDING AT THIS TIME -NOT NOTED ON EARLIER ASSESSMENT-REFER TO INTRA OP ECHOCARDIOGRAM--NOT LOUDER 3/6 ON INSPIRATION-SOFTER ON EXPIRATON-LOCATED AT L INTERCOSTAL SPACE 2 ONLY
--- NOTE | 2018-11-26 18:05 | NUR ---
1430-AMBULATED IN HALLWAY ON ROOM AIR- 1500-PLACED BACK O2 2L-SAT 88 1715-DINNER COMPLETED AND ASSITED TO BED-SEE EMAR -
--- NOTE | 2018-11-26 19:00 | NUR ---
REPORT RECEIVED AND ASSESSMENT COMPLETED. SEE FLOWSHEET FOR FULL DETAILS. VSS. WILL MONITOR THROUGHOUT SHIFT
--- NOTE | 2018-11-26 21:50 | NUR ---
2100 MEDS GIVEN VSS WILL MONITOR
[2018-11-27] VITALS (22 sets, daily range): BP systolic 103–150; BP diastolic 47–72
--- NOTE | 2018-11-27 03:01 | NUR ---
0147 RECIEVED REPORT, ASSUMED CARE OF PATIENT. 0300 ASSESSMENT COMPLETE, PLEASE SEE FLOW SHEETS FOR DETAILS. C/O PAIN, PROVIDED PAIN MEDS PER ORDERS. VSS, BED LOW AND LOCKED, CALL LIGHT IN REACH. WILL CONTINUE PLAN OF CARE.
--- NOTE | 2018-11-27 05:56 | NUR ---
0500 ASSISTED WITH FULL BED BATH, AMBULATED SELF TO TOILET, URINATED, AMBULATED SELF TO CHAIR. TOLERATED ACTIVITY WELL. VSS, CHAIR LOCKED, LEGS ELEVATED AND ON PILLOW. SUBSTERNAL DRESSING CHANGE PROVIDED. WILL CPOC.
[2018-11-27 06:51] LABS: HEMATOCRIT 29.1 % (42.0-54.0); HEMOGLOBIN 9.5 g/dL (13.5-17.5); MCH 32.8 pg (26.0-34.0); MCHC 32.6 g/dL (31.0-37.0); MEAN PLATELET VOLUME 11.3 fL (7.4-10.4); RBC 2.9 10x6/uL (4.20-6.10); RDW 13.9 % (11.5-14.5); WBC 14.1 10x3/uL (4.8-10.8)
[2018-11-27 07:01] LABS: MCV 100.3 fL (80.0-100.0)
[2018-11-27 07:13] LABS: ALBUMIN 2.4 g/dL (3.4-5.0); ALKALINE PHOSPHATASE 128 U/L (46-116); ALT (SGPT) 28 U/L (10-68); CALC OSMOLALITY 277 mosm/kg (275-300); CALCIUM 8.9 mg/dL (8.5-10.1); CARBON DIOXIDE 28.1 mmol/L (21.0-32.0); CHLORIDE - SERUM 98 mmol/L (98-107); GLUCOSE 119 mg/dL (74-106); POTASSIUM - SERUM 4.2 mmol/L (3.5-5.1); PROTEIN - SERUM 6.4 g/dL (6.4-8.2); SODIUM 136 mmol/L (136-145); UREA NITROGEN 27 mg/dL (7-18); eGFR NON AFRICAN AMERICAN 80 mL/min (90-120)
--- NOTE | 2018-11-27 08:16 | NUR ---
0715-RECIEVED AWAKE AND ALERT-SITTING UP IN CHAIR-STATES YES HAS SURGICAL PAIN IN CHEST-STATES PRIMARY PAIN IS NECK SURGERY-STIFFNESS AND SPASMS WHEN COUGHS-03/14-
--- NOTE | 2018-11-27 16:41 | NUR ---
0900-AMBULATES ON ROOM AIR-O2SAT 94%-REMAINS ON ROOM AIR 0930-NOTED O2 AOH-46-ISYPBA AT 4L [facility] 1330-SITTING UP IN CHAIR 1530-AMBULATED TO RESTROOM
--- NOTE | 2018-11-27 20:11 | NUR ---
1900 REPORT RECIEVED, CARE ASSUMED. 192 SHIFT ASSESSMENT COMPLETE, PLEASE SEE FLOW SHEETS FOR DETAILS. ASSISTED TO SIDE OF BED TO URINATE. TOLERATED WELL. VSS, BED LOW AND LOCKED, CALL LIGHT AND PERSONAL ITEMS IN REACH. WILL CONTINUE PLAN OF CARE.
--- NOTE | 2018-11-27 21:00 | NUR ---
TOLERATED MEDS WELL. DENIES PAIN/NEEDS. VSS, BED LOW AND LOCKED, WILL CONTINUE TO MONITOR.
--- NOTE | 2018-11-27 23:00 | NUR ---
REASSESSMENT COMPLETE, PLEASE SEE FLOW SHEETS FOR DETAILS. NO ACUTE CHANGES TO NOTE. UP TO TOILET AGAIN, BM AND VOID REPORTED. VSS, BED LOW AND LOCKED, CALL LIGHT IN REACH. DENIES NEEDS/PAIN, WILL CONTINUE PLAN OF CARE.
[2018-11-28] VITALS (22 sets, daily range): BP systolic 99–177; BP diastolic 45–79
--- NOTE | 2018-11-28 00:59 | NUR ---
RESTING, VSS, WILL CPOC.
--- NOTE | 2018-11-28 02:56 | NUR ---
REASSESSMENT COMPLETE, PLEASE SEE FLOW SHEETS FOR DETAILS. NO ACUTE CHANGES. DENIES PAIN/NEEDS. WILL CPOC.
[2018-11-28 05:54] LABS: BASOPHILS 0.5 % (0-2); EOSINOPHILS 3.7 % (0-7); HEMOGLOBIN 9.2 g/dL (13.5-17.5); LYMPHOCYTES 18.9 % (15-50); MCH 32.4 pg (26.0-34.0); MCHC 32.9 g/dL (31.0-37.0); MCV 98.6 fL (80.0-100.0); MEAN PLATELET VOLUME 10.4 fL (7.4-10.4); MONOCYTES 11.8 % (2-11); NEUTROPHILS 64.1 % (40-80); PLATELET COUNT 183 10x3/uL (130-400); RBC 2.84 10x6/uL (4.20-6.10); RDW 13.7 % (11.5-14.5); WBC 12.3 10x3/uL (4.8-10.8)
[2018-11-28 06:15] LABS: ALBUMIN 2.4 g/dL (3.4-5.0); ALKALINE PHOSPHATASE 126 U/L (46-116); ALT (SGPT) 24 U/L (10-68); CALC OSMOLALITY 270 mosm/kg (275-300); CALCIUM 8.6 mg/dL (8.5-10.1); CARBON DIOXIDE 27.7 mmol/L (21.0-32.0); CHLORIDE - SERUM 97 mmol/L (98-107); CREATININE - SERUM 0.9 mg/dL (0.6-1.3); GLUCOSE 111 mg/dL (74-106); POTASSIUM - SERUM 4.6 mmol/L (3.5-5.1); PROTEIN - SERUM 6.4 g/dL (6.4-8.2); SODIUM 133 mmol/L (136-145); UREA NITROGEN 24 mg/dL (7-18); eGFR NON AFRICAN AMERICAN 90 mL/min (90-120)
--- NOTE | 2018-11-28 08:21 | NUR ---
0715-RECIEVED AWAKE STANDING UP AT [facility] CHAIR-STATES TO RELIEVE PRESSURE TO BACKSIDE-STATED NECK DECREASED IN PAIN AT THIS TIME 0800- AT [facility]-PT AMBULATED TO RESTROOM
--- NOTE | 2018-11-28 13:10 | NUR ---
1230-NORCO 5 PO GIVEN-FOR INCISIONAL PAIN AND PREMED REMOVAL OF J TUBES
--- NOTE | 2018-11-28 15:21 | NUR ---
1400-PT ASSISTED TO BED-PLACED SUPINE-REMOVAL OF MELECIO DRAIN PROCEDURE EXPLAINED-AND PT INSTRUCTION GIVEN-SUTURE REMOVED-BULB DECOMPRESSED-REMOVED WITHOUT DIFFICULTY-PT REMARKED NOT AWARE WHEN REMOVED
--- NOTE | 2018-11-28 19:41 | NUR ---
REPORT RECEIVED, SHIFT ASSESSMENT COMPLETED PER FLOW SHEET. AAOX4. PPP. RT SUBCLAVIAN CVL PATENT, SALINE LOCKED, DRESSING C/D/I. DENIES NEEDS. ENCOURAGED COUGH/DEEP BREATHING AND USE OF IS. PULLING 1000 X10 ON IS. COUGH STRONG. SEE FLOW SHEET FOR COMPLETE ASSESSMENT. WILL CONTINUE TO MONITOR.
--- NOTE | 2018-11-28 21:06 | NUR ---
SCHEDULED MEDS GIVEN, WATER WITH ICE PROVIDED, NO DYSPHAGIA. REFUSED SENOKOT AND COLACE STATES "NO I DO NOT WANT THEM" STATES HE HAS HAD 5 BOWEL MOVEMENTS TODAY. DENIES OTHER NEEDS. CALL LIGHT WITHIN REACH.
--- NOTE | 2018-11-28 21:15 | NUR ---
C/O INCISIONAL PAIN, PRN PERCOCET GIVEN, SEE EMAR FOR DETAILS.
--- NOTE | 2018-11-28 23:01 | NUR ---
REASSESSMENT COMPLETED PER FLOW SHEET, SEE FOR DETAILS. NO ACUTE DISTRESS NOTED. DENIES NEES. WILL CONTINUE TO MONITOR. CALL LIGHT WITHIN REACH.
[2018-11-29] VITALS (11 sets, daily range): BP systolic 99–145; BP diastolic 44–60
--- NOTE | 2018-11-29 01:07 | NUR ---
CALL LIGHT ANSWERED, ASSISSTED OOB TO USE BATHROOM. REPORTS NO BM. ASSISSTED BACK IN BED. DENIES OTHER NEEDS. CALL LIGHT WITHIN REACH. WILL CONTINUE TO MONITOR.
--- NOTE | 2018-11-29 03:10 | NUR ---
REASSESSMENT COMPLETED PER FLOW SHEET, SEE FOR DETAILS. NO ACUTE CHANGES NOTED. DENIES NEEDS. CALL LIGHT WITHIN REACH. WILL CONTINUE TO MONITOR.
--- NOTE | 2018-11-29 05:00 | NUR ---
ASSISSTED OOB TO CHAIR. CALL LIGHT WITHIN REACH. WILL CONTINUE TO MONITOR.
--- NOTE | 2018-11-29 07:48 | NUR ---
0700 PT RECIEVED ALERT AN DORIENTED ON ROOM AIR VSS DENIES PAIN MIDSTERNAL AND SUBSTERNAL DRESSINGS CDI WITH SUBSTERNAL TPM WIRE DRESSING CDI, CONTNENT, RLE/LLE HARVEST SITES GLUE WELL APPROXIMATED, OPEN TO AIR, SCDS AND TEDS IN PLACE, WILL CONTINUE TO MONITOR
[2018-11-29] MEDS ORDERED: HEMOCYTE PLUS C1 CAP PO (10:13)
[2018-11-29] MEDS ORDERED: PLAVIX75 MG PO (10:13)
[2018-11-29] MEDS ORDERED: AMIODARONE HCL200 MG PO (10:15)
[2018-11-29] MEDS ORDERED: COLACE100 MG PO (10:16)
[2018-11-29] MEDS ORDERED: PERCOCET 5-3251 TAB PO (10:17)
--- NOTE | 2018-11-29 10:31 | NUR ---
0900 TPM WIRE REMOVED BY JAMI TURNER 1015 CVL REMOVED PER PROTOCOL
--- NOTE | 2018-11-29 10:47 | NUR ---
violette villafana reviewed with pt and by leonard and myself, deny all questions, follow up apptments with nguyen, pt will schedule follow up appt with dr ferguson
--- NOTE | 2018-11-29 10:55 | NUR ---
PT ASSISTED TO VEHICLE. DRIVING. DENIES ANY QUESTIONS.
--- NOTE | 2018-11-29 11:35 | MORECARE ---
CASE MANAGEMENT DISCHARGE SUMMARY PATIENT: DAPHNIE CARVAJAL UNIT: [id number] ADM DATE: 11/23/18 AGE: 63 : 53 SEX: M [facility] AUTHOR: COLLINS VELASQUEZ PHYSICIAN: REFERRING PHYSICIAN: GISELA MURPHY MD DATE OF SERVICE: 11/29/18 Discharge Plan Patient Name: DAPHNIE CARVAJAL Facility: [facility]:[place] : 1955 Planned Disposition: Home Anticipated Discharge Date: Discharge Date: 11/29/2018 Expected LOS: Initial Reviewer: [email or web address] Initial Review Date: 11/23/2018 Generated: 11/29/18 12:35 pm Comments DCP- Discharge Planning Updated by [email or web address]: Moira Menendez on 11/29/18 10:[address] Patient Name: DAPHNIE CARVAJAL Encounter No: [id number] : 1955 Primary Insurance: MEDICARE A & B Anticipated DC Date: Planned Disposition: Home External Planned Provider: : D/C IMM explained and served 11/29/18 @ 1020. Patient denies any discharge needs. DCP follow-up note: Patient and family in agreement with discharge plan. No changes to plan. Case management will follow and assist as needed. Moira Menendez DCP- Discharge Planning Updated by [email or web address]: Moira Menendez on 11/25/18 2:[address] Patient Name: DAPHNIE CARVAJAL Admission Status: Elective Accout number: [id number] Admission Date: 11-23-2018 : 1955 Admission Diagnosis:ATHSCL HEART DISEASE OF [place] CORONARY ARTERY W/O ANG Attending: GISELA MURPHY Current LOS: 2 Anticipated DC Date: Planned Disposition: Home Primary Insurance: MEDICARE A & B Discharge Planning Comments: CM met with patient at bedside after obtaining verbal consent. Patient states he plans on returning home after discharge with his . Patient states he will have family transport him home via private vehicle. Patient denies any discharge needs at this time. CM will continue to follow and assist as needed for discharge planning / needs. Public Relations Professional: Moira Menendez DCPIA - Discharge Planning Initial Assessment Updated by [id number]: Moira Menendez on 11/25/18 3:31 pm * Is the patient Alert and Oriented? Yes * How many steps to enter\exit or inside your home? * PCP TRAVON RAE APN * Pharmacy [facility] * Preadmission Environment Home with Family * ADLs Independent * Equipment None * List name and contact numbers for known caregivers / representatives who currently or will assist patient after discharge: MEMO CARVAJAL - SPOUSE- [phone] * Verbal permission to speak to the caregivers and representatives has been obtained from the patient. Yes * Community resources currently utilized None * Additional services required to return to the preadmission environment? No * Can the patient safely return to the preadmission environment? Yes * Has this patient been hospitalized within the prior 30 days at any hospital? Yes Coverage Notice Reviewer: [id number] - Moira Menendez Notice Issued Date-Time: 11/29/2018 10:20 Notice Type: IM Discharge Notice Notice Delivered To: Patient Relationship to Patient: Self Kitchen And Bath Designer Name: Delivery Method: HAND - Hand Delivered Claribel Days: Prior Verbal Notification: Recipient Understood Notice: Yes Recipient Signature: Yes Med Rec Note Co-signed by Attending: Coverage Notice Comment: Last DP export: 11/25/18 2:43 p Patient Name: DAPHNIE CARVAJAL Page [phone] at 1135 All edits/amendments must be made on the electronic document DICTATION DATE: 11/29/18 1135 LEADERSHIP PROGRAM INTERNSHIP: FABRICIO 11/29/18 1135 RPT#: [id number] DC DATE:11/29/18 STATUS: DIS IN [facility] [address] [place] [address] END OF REPORT
--- NOTE | 2018-11-29 11:43 | MORECARE ---
CASE MANAGEMENT DISCHARGE SUMMARY PATIENT: DAPHNIE CARVAJAL UNIT: [id number] ADM DATE: 11/23/18 AGE: 63 : 53 SEX: M [facility] AUTHOR: COLLINS VELASQUEZ PHYSICIAN: REFERRING PHYSICIAN: GISELA MURPHY MD DATE OF SERVICE: 11/29/18 Discharge Plan Patient Name: DAPHNIE CARVAJAL Facility: [facility]:[place] : 1955 Planned Disposition: Home Anticipated Discharge Date: Discharge Date: 11/29/2018 Expected LOS: Initial Reviewer: [id number] Initial Review Date: 11/23/2018 Generated: 11/29/18 12:42 pm Comments DCP- Discharge Planning Updated by [email or web address]: Moira Menendez on 11/29/18 10:[address] Patient Name: DAPHNIE CARVAJAL Encounter No: [id number] : 1955 Primary Insurance: MEDICARE A & B Anticipated DC Date: Planned Disposition: Home External Planned Provider: : D/C IMM explained and served 11/29/18 @ 1020. Patient denies any discharge needs. DCP follow-up note: Patient and family in agreement with discharge plan. No changes to plan. Case management will follow and assist as needed. Moira Menendez DCP- Discharge Planning Updated by [id number]: Moira Menendez on 11/25/18 2:[address] Patient Name: DAPHNIE CARVAJAL Admission Status: Elective Accout number: [id number] Admission Date: 11-23-2018 : 1955 Admission Diagnosis:ATHSCL HEART DISEASE OF [place] CORONARY ARTERY W/O ANG Attending: GISELA MURPHY Current LOS: 2 Anticipated DC Date: Planned Disposition: Home Primary Insurance: MEDICARE A & B Discharge Planning Comments: CM met with patient at bedside after obtaining verbal consent. Patient states he plans on returning home after discharge with his . Patient states he will have family transport him home via private vehicle. Patient denies any discharge needs at this time. CM will continue to follow and assist as needed for discharge planning / needs. Injection Molding Process Technician: Moira Menendez DCPIA - Discharge Planning Initial Assessment Updated by [email or web address]: Moira Menendez on 11/25/18 3:31 pm * Is the patient Alert and Oriented? Yes * How many steps to enter\exit or inside your home? * PCP TRAVON RAE APN * Pharmacy [facility] * Preadmission Environment Home with Family * ADLs Independent * Equipment None * List name and contact numbers for known caregivers / representatives who currently or will assist patient after discharge: MEMO CARVAJAL - SPOUSE- [phone] * Verbal permission to speak to the caregivers and representatives has been obtained from the patient. Yes * Community resources currently utilized None * Additional services required to return to the preadmission environment? No * Can the patient safely return to the preadmission environment? Yes * Has this patient been hospitalized within the prior 30 days at any hospital? Yes Coverage Notice Reviewer: [id number] - Moira Menendez Notice Issued Date-Time: 11/29/2018 10:20 Notice Type: IM Discharge Notice Notice Delivered To: Patient Relationship to Patient: Self Special Procedures Nurse Name: Delivery Method: HAND - Hand Delivered Claribel Days: Prior Verbal Notification: Recipient Understood Notice: Yes Recipient Signature: Yes Med Rec Note Co-signed by Attending: Coverage Notice Comment: Last DP export: 11/29/18 10:35 a Patient Name: DAPHNIE CARVAJAL Page [phone] at 1143 All edits/amendments must be made on the electronic document DICTATION DATE: 11/29/18 1142 MINT MACHINE OPERATOR: FABRICIO 11/29/18 1142 RPT#: [id number] DC DATE:11/29/18 STATUS: DIS IN [facility] [address] [place] [address] END OF REPORT
--- NOTE | 2018-11-30 11:18 | TEE ---
PATIENT:DAPHNIE CARVAJAL MEDICAL RECORD: [id number] LOCATION:[place] [address] AGE OF PATIENT: 63 ADMISSION DATE: 11/23/18 SEX: M REFERRING PHYSICIAN: INTERPRETING PHYSICIAN: DEE DEE DIAZ MD TRANSESOPHAGEAL ECHOCARDIOGRAM Date: 11/23/18 PATSY CHARGE Y INDICATIONS: CABG PREMEDICATIONS: PATIENT'S RESPONSE PROCEDURE DOPPLER MEASUREMENTS: LVIT LA PA RA LVOT RVOT Asc. Ao AV Gradient Peak AV Mean AV Area MV Gradient Peak MV Mean MV Area INTERPRETATION: Doppler: 2-D: COLOR FLOW DOPPLER NORMAL SALINE STUDY: MISCELLANOUS: DIAGNOSIS: PLAN: Ticketing Agent:2 Dr. Amin Ob Nurse: Joselito CHARLES COMMENTS: KATHERINE PATIENT DATE OF SERVICE: 11/23/2018 DATE OF SERVICE: 11/23/2018 PROCEDURE: Transesophageal echo evaluation of valvular structures during bypass surgery. FINDINGS: 1. Left ventricular chamber size is within normal limits. Left ventricular TRANSESOPHAGEAL ECHOCARDIOGRAM REPORT [id number] DAPHNIE CARVAJAL systolic function is normal. Overall ejection fraction estimated at 65%. 2. Left atrium, right atrium, and right ventricle chamber sizes are within normal limits. 3. Valvular structures have normal structure and motion. 4. Doppler interrogation reveals trace mitral regurgitation and trace tricuspid regurgitation, no other valvular insufficiency or stenosis. 5. No evidence of pericardial effusion or left ventricular thrombus. TRANSINT:[id number] Voice Confirmation ID: [id number] DOCUMENT ID: [id number] at 1118 CC: [id number] DICTATION DATE: 11/23/18 1153 QUALITY CLOTH TESTER: 11/24/18 0312 DIS IN 11/29/18 [place] [id number] [place] [id number]
== END 2018-11-29 10:55 | disposition home or self-care (01) | DRG 236 ==
LOC: D.SDCHOLD 11-23 05:00 → D.CVICU 11-23 05:00 → D.SDCHOLD 11-23 07:30 → D.CVICU 11-23 13:18
PROVIDERS: ADMIT Thoracic Surgery (Cardiothoracic Vascular Surgery)
PROC: 021309W Bypass Coronary Artery, Four or More Arteries from Aorta with Autologous Venous Tissue, Open Approach (ICD-10-PCS; 2018-11-23)
PROC: 06BQ4ZZ Excision of Left Saphenous Vein, Percutaneous Endoscopic Approach (ICD-10-PCS; 2018-11-23)
PROC: 5A1221Z Performance of Cardiac Output, Continuous (ICD-10-PCS; 2018-11-23)
PROC: B24BZZ4 Ultrasonography of Heart with Aorta, Transesophageal (ICD-10-PCS; 2018-11-23)
PROC: 02100Z9 Bypass Coronary Artery, One Artery from Left Internal Mammary, Open Approach (ICD-10-PCS; principal; 2018-11-23 07:30)
DX: I25.10 Atherosclerotic heart disease of native coronary artery without angina pectoris (principal); E87.1 Hypo-osmolality and hyponatremia; J98.11 Atelectasis; I10 Essential (primary) hypertension; Z87.891 Personal history of nicotine dependence; I65.29 Occlusion and stenosis of unspecified carotid artery; D53.9 Nutritional anemia, unspecified

== ENCOUNTER 2018-12-02 00:18 | Inpatient (IN) | payer MEDICARE, BC ==
[~2018-12-02] VITALS: Ht 170.2 cm; Wt 75.1 kg
[2018-12-02] VITALS (40 sets, daily range): BP systolic 106–198; BP diastolic 31–83; Ht 170.2 cm; Wt 75.1 kg
--- NOTE | ~2018-12-02 | TEE ---
PATIENT:DAPHNIE CARVAJAL MEDICAL RECORD: [id number] LOCATION:[place] [address] AGE OF PATIENT: 63 ADMISSION DATE: 12/02/18 SEX: M REFERRING PHYSICIAN: INTERPRETING PHYSICIAN: DEE DEE DIAZ MD TRANSESOPHAGEAL ECHOCARDIOGRAM Date: 12/02/18 PATSY CHARGE Y INDICATIONS: ASSESS FOR PERICARDIAL EFFUSION PREMEDICATIONS: PATIENT'S RESPONSE PROCEDURE DOPPLER MEASUREMENTS: LVIT LA PA RA LVOT RVOT Asc. Ao AV Gradient Peak AV Mean AV Area MV Gradient Peak MV Mean MV Area INTERPRETATION: Doppler: 2-D: COLOR FLOW DOPPLER NORMAL SALINE STUDY: MISCELLANOUS: DIAGNOSIS: PLAN: Cat Sitter:2 Dr. Amin Behavior Clinician: Joselito CHARLES COMMENTS: KATHERINE PATIENT DATE OF SERVICE: 12/02/2018 PROCEDURE: Transesophageal echocardiogram. FINDINGS: 1. Left ventricular chamber size is within normal limits. Left ventricular systolic function is normal. Overall ejection fraction estimated at 55% to 60%. 2. Left atrium, right atrium, and right ventricular chamber sizes are within normal limits. TRANSESOPHAGEAL ECHOCARDIOGRAM REPORT [id number] DAPHNIE CARVAJAL 3. Valvular structures have normal structure and motion. 4. Doppler interrogation reveals mild mitral regurgitation, no other valvular insufficiency or stenosis. 5. No pericardial effusion is present; however, there is a pleural effusion present. 6. No evidence of left ventricular thrombus. TRANSINT:[id number] Voice Confirmation ID: [id number] DOCUMENT ID: [id number] DEE DEE DIAZ MD CC: [id number] DICTATION DATE: 12/03/18 1134 E COMMERCE SOLUTION ARCHITECT: 12/04/18 0029 ADM IN [place] [id number] [place] [address]
[~2018-12-02 00:18] MED LIST changes: +AMIODARONE HCL200 MG PO; +COLACE100 MG PO; +HEMOCYTE PLUS C1 CAP PO; +PERCOCET 5-3251 TAB PO; +PLAVIX75 MG PO
[2018-12-02 01:03] LABS: BASOPHILS 0.5 % (0-2); EOSINOPHILS 1.2 % (0-7); HEMATOCRIT 33.7 % (42.0-54.0); HEMOGLOBIN 10.9 g/dL (13.5-17.5); IMMATURE GRANULOCYTES 3.7 % (0-5); LYMPHOCYTES 17.8 % (15-50); MCH 32.1 pg (26.0-34.0); MCHC 32.3 g/dL (31.0-37.0); MCV 99.1 fL (80.0-100.0); MONOCYTES 9.6 % (2-11); NEUTROPHILS 67.2 % (40-80); RDW 14.2 % (11.5-14.5); WBC 13.3 10x3/uL (4.8-10.8)
[2018-12-02 01:16] LABS: PLATELET COUNT 318 10x3/uL (130-400)
[2018-12-02 01:24] LABS: ALBUMIN 2.9 g/dL (3.4-5.0); ALKALINE PHOSPHATASE 173 U/L (46-116); ALT (SGPT) 32 U/L (10-68); APTT 40.4 SECONDS (22.8-39.4); BILIRUBIN - TOTAL 0.63 mg/dL (0.2-1.3); CALC OSMOLALITY 269 mosm/kg (275-300); CALCIUM 8.4 mg/dL (8.5-10.1); CARBON DIOXIDE 31.1 mmol/L (21.0-32.0); CHLORIDE - SERUM 99 mmol/L (98-107); CREATININE - SERUM 1.1 mg/dL (0.6-1.3); INR 1.18 (0.85-1.17); POTASSIUM - SERUM 4.3 mmol/L (3.5-5.1); PROTEIN - SERUM 7.2 g/dL (6.4-8.2); PROTIME 14.5 SECONDS (11.6-15.0); SODIUM 134 mmol/L (136-145); UREA NITROGEN 16 mg/dL (7-18); eGFR NON AFRICAN AMERICAN 71 mL/min (90-120)
[2018-12-02 01:26] LABS: GLUCOSE 118 mg/dL (74-106)
[2018-12-02 01:41] LABS: CKMB 6.5 U/L (0.0-3.6); CREATINE KINASE 107 UL (21-232); MAGNESIUM - SERUM 1.8 mg/dL (1.8-2.4); PRO BNP 2504 pg/mL (0-125)
--- NOTE | 2018-12-02 02:28 | NUR ---
PT AMBULATED TO RESTROOM INDEPENDENTLY.
--- NOTE | 2018-12-02 03:55 | NUR ---
RECIEVED TO ROOM 2118 FROM ER VIA W.C. PT A&O, RESPERTIONS NON LABORED ON RA. MID LINE INCISION NOTED FROM CABG DONE ON 11/23/18, INCISION RED WITH GLUE STILL VISIBLE, SEROSANGUINEOUS FLUID NOTED ON GOWN. PT STATED THAT EVERY TIME HE COUGHS BLOOD TINGED FLUID LEAKS OUT FROM INCISION, THIS WAS REPORTED TO ME BY THE E.R NURSE NOAH WELL. ASKED PT IF HE IS USING HIS PILLOW TO SPLINT HIS CHEST WHEN HE COUGHS, PT STATED " NOT REALLY, IT DOSENT REALLY HELP" HANDED PT PILLOW AND ASKED HIM TO PLEASE USE PILLOW WHEN HE COUGHS SO HIS INCISION WONT OPEN BACK UP. SEVERAL MORE INCISIONS NOTED TO PTS ABDOMEN FROM SAME PROCEDURE. IV TO LEFT AC SL, SITE CLEAN AND DRY. PLACED ON TELEMETRY, 80 SR PER MT. HISTORY AND MED REC OBTAINED. PT DENIES PAIN OR NEEDS. URINAL GIVEN, ENCOURAGED PT TO USE SO WE CAN HAVE AN ACCURATE OUT PUT. AT BED SIDE, BED LOW, CL IN REACH.
--- NOTE | 2018-12-02 07:55 | NUR ---
PAGED REGARDING PTS EXCESSIVE MIDSTERNUM DRAINAGE AND HE STATES HE IS AWARE AND IN HOUSE AND WILL BE BY SHORTLY. PT WAITING PATIENTLY DENIES ANY CURRENT PAIN OR NEEDS. EMPTIED URINAL OF 500CC CLEAR YELLOW URINE. AT BEDSIDE.
--- NOTE | 2018-12-02 08:00 | NUR ---
WILBUR PERKINSE IN PLACE FOR DVT PROPHYLACTICS.
--- NOTE | 2018-12-02 08:16 | NUR ---
CLEANSED PTS MIDSTERNUM INCISION WITH BETADINE SWABS THEN COVERED WITH GUAZE AND SECURED WITH TAPE. ROUNDED AND DISCUSSED PLAN OF CARE WITH PT. PT VERBALIZED UNDERSTANDING. NO CURRENT NEEDS. WILL CTM.
--- NOTE | 2018-12-02 08:53 | NUR ---
PRE-OP WIPE DOWN COMPLETED. PRE OP MEDS GIVEN ORDERED. SENT ANBX WITH PT TO OR. CONSENTS SIGNED AND OBTAINED IN CHART. NO FURTHER NEEDS. PT IS LEAVING FLOOR NOW.
[2018-12-02 09:01] LABS: HEMATOCRIT 33.5 % (42.0-54.0); HEMOGLOBIN 10.8 g/dL (13.5-17.5); MCH 31.8 pg (26.0-34.0); MCHC 32.2 g/dL (31.0-37.0); MCV 98.5 fL (80.0-100.0); MEAN PLATELET VOLUME 9.1 fL (7.4-10.4); RBC 3.4 10x6/uL (4.20-6.10); RDW 14.2 % (11.5-14.5); WBC 12.2 10x3/uL (4.8-10.8)
[2018-12-02 09:08] LABS: CALC OSMOLALITY 276 mosm/kg (275-300); CALCIUM 8.6 mg/dL (8.5-10.1); CARBON DIOXIDE 30.4 mmol/L (21.0-32.0); CHLORIDE - SERUM 100 mmol/L (98-107); GLUCOSE 99 mg/dL (74-106); POTASSIUM - SERUM 3.8 mmol/L (3.5-5.1); SODIUM 138 mmol/L (136-145); UREA NITROGEN 15 mg/dL (7-18); eGFR NON AFRICAN AMERICAN 80 mL/min (90-120)
[2018-12-02 09:10] LABS: APTT 35.9 SECONDS (22.8-39.4); INR 1.2 (0.85-1.17); PROTIME 14.7 SECONDS (11.6-15.0)
--- NOTE | 2018-12-02 13:07 | NUR ---
PT ARRIVED IN THE UNIT AND HOOKED TO ICU MONITORS. OPT ON A NON REBREATHER. LEFT IJ CVL NOTED. PLASMALYTE INFUSING. MIDSTERNAL DRESSING C/D/I. LEFT LATERAL CHEST TUBE NOTED AND CONNECTED TO 20CM OF SUCTION. NO AIR LEAK NOTED UNLESS THE PT COUGHS. SEROUSANGENIOUS DRAINAGE NOTED. RIGHT RADIAL ROME NOTED. WRIST PROTECTOR ON. FC NOTED WITH CLEAR YELLOW URINE. PT HYPERTENSIVE AND NITRO TITRATED AND MAXED OUT, CLEVEPREX WAS THEN INITIATED AND TITRATED TO EFFECT. SEE IV FLOW SHEET. PT O2 SATURATION 81. PT BREATHING SHALLOW. PT EXTREAMLY DROWSEY BUT ABLE TO FOLLOW COMMANDS. PT INSTRUCTED TO TAKE BIG DEEP BREATHS AND COUGH. CRAKLES AND RHONCI NOTED IN THE LEFT LUNG. RIGHT LUNG CRAKLES NOTED WITH DEMINISHED RLL. DR LITTLEJOHN AT THE PT'S BEDSIDE AND GAVE AN ORDER FOR A DUONEB. RT NOTIFIED. AFTER PT BREATHING AND COUGHING, RT ARRIVED AND PLACED BREATHING TREATMENT ON THE PT. COUGH BEMING LESS PRODUCTIVE AND O2 SATURATION ABOVE 90% 1315 OXIMIZER AT 15L PER RT. PT TCDB. IS PROVIDED FOR THE PT. PT PULLING ABOUT 500 TO 750 ON HIS IS. O2 SAT 88-93%. BREATHING UNLABORED. PT COUGHING UP THICK SECREATIONS. PT IS AWAKE AND FOLLOWING COMMANDS. DENIES PAIN AT THIS TIME. CALL LIGHT IN REACH. WILL CONT POC.
--- NOTE | 2018-12-02 13:30 | NUR ---
BP STABLE. RESP NORMAL AND UNLABORED. 15L VIA OXIMIZER SPO2 92% AND STABLE. REMAINS TO PULL 500-750 ON HIS IS. LEFT LATERL CT REMAINS UNCHANGED. WILL CONT POC.
--- NOTE | 2018-12-02 14:54 | NUR ---
PT WILL OCCASIONALLY DESAT TO 85%. HAVE TO ENCOURAGE THE PT TO TAKE BIG DEEP BREATHS AND TO COUGH. PT O2 SAT WILL INCREASE TO 88-90%. DR MURPHY CALLED AND NOTIFIED. HE STATED TO CONSULT PULMONOLOGY. DR SHAHEEN BERGER. RT ALSO NOTIFIED OF DESAT
--- NOTE | 2018-12-02 15:03 | NUR ---
DR JAMISON CALLED AND MADE AWARE OF THE CONSULT. HE STATED TO GET STAT ABG'S AND TO PLACE THE PT ON BIPAP 16/8 FIO2 100%.
--- NOTE | 2018-12-02 15:31 | NUR ---
BIPAP PLACED ON THE PT PER RT. O2 SAT 94%
--- NOTE | 2018-12-02 16:08 | NUR ---
DR JAMISON AT THE PTS BESIDE. SEE ORDERS.
--- NOTE | 2018-12-02 16:25 | NUR ---
BLOOD WORK COLLECTED AND SENT DOWN TO THE LAB. LASIX GIVEN. SEE MAR.
--- NOTE | 2018-12-02 17:16 | NUR ---
DR JAMISON CALLED AND NOTIFIED ABOUT D SAULMER RESULTS. DR JAMISON STATED TO GO AHEAD FOR CTA OF THE CHEST. RADIOLOGY CALLED AND NOTIFIED.
--- NOTE | 2018-12-02 17:30 | NUR ---
ASSISTED RADIOLOGY WITH THE PT FOR THE CHEST CTA. I WENT DOWN WITH THE PT FOR HIS CTA. PT PLACED ON 15L VIA OXIMIZER. BREATHING UNCHANGED HOWEVER THE PT WAS DESATING SLOWLY. PT TOLERATED THE CTA WELL. PT BACK INTO THE ROOM WITH STABLE VITAL SIGNS AND HOOKED TO ICU MONITORS. PT PUT BACK TO BIPAP. PT WAS NOT PLEASED ABOUT WEARING THE BIPAP BUT EDUCATED TO THE PT THE IMPORTANCE OF WEARING THE BIPAP. PT COOPERATIVE AT THIS TIME. WILL CONT POC.
--- NOTE | 2018-12-02 21:30 | NUR ---
1899 REPORT RECEIVED CARE ASSUMED. PT LAYING IN BED RESTING. ICU MONITORS IN PLACE ALARMS SET AND VERIFIED. ASSESSMENT DONE SEE FLOW SHEET. PT CONTINUALLY DESATS WHEN NOT ON BIPAP. PT AGGITATED AND WANTING BIPAP OFF. WILL CONTINUE TO MONITOR. 2099 MEDS GIVEN PER DEC. WILL CONTINUE TO MONITOR. 2129 DR MURPHY INFORMED OF PT STATUS. ORDERS RECEIVED WILL CONTINUE TO MONITOR.
--- NOTE | 2018-12-02 23:00 | NUR ---
REASSESSMENT DONE SEE FLOW SHEET. VSS. NITRO AND CLEVIPREX WEANED OFF. WILL CONTINUE TO MONITOR.
[2018-12-03] VITALS (24 sets, daily range): BP systolic 99–145; BP diastolic 37–64
--- NOTE | 2018-12-03 00:13 | NUR ---
RT AT BEDSIDE BIPAP ADJUSTED PO2 TO 60%.
--- NOTE | 2018-12-03 01:00 | NUR ---
PT IN BED RESTING. VSS. NO SIGNS OF ACUTE DISTRESS NOTED WILL CONTINUE TO MONTIOR.
--- NOTE | 2018-12-03 03:00 | NUR ---
REASSESSMENT DONE SEE FLOW SHEET. RT AT BEDSIDE BIPAP AND VAPOTHERM TO 40%. COMPLETE BED BATH. LINEN CHANGE. MORGAN CARE. VSS. WILL CONITNUE TO WEAN OXYGEN.
--- NOTE | 2018-12-03 04:54 | NUR ---
PT PUT ON NC 2LPM AT 0400. VSS. TOLERATING WELL. NO SIGN SOF ACUTE DISTRESS. PT VERBALIZES HE HAS NOT FELT THIS GOOD IN A LONG TIME. WILL CONTINUE TO MONITOR.
--- NOTE | 2018-12-03 05:00 | NUR ---
LABS DRAWN. VSS. PT VERBALIZES NO COMPLAINTS WILL CONITNUE TO MONITOR.
[2018-12-03 06:00] LABS: HEMATOCRIT 28.9 % (42.0-54.0); HEMOGLOBIN 9.1 g/dL (13.5-17.5); MCH 31.3 pg (26.0-34.0); MCHC 31.5 g/dL (31.0-37.0); MCV 99.3 fL (80.0-100.0); MEAN PLATELET VOLUME 9.1 fL (7.4-10.4); PLATELET COUNT 321 10x3/uL (130-400); RBC 2.91 10x6/uL (4.20-6.10); RDW 14.9 % (11.5-14.5); WBC 23.7 10x3/uL (4.8-10.8)
[2018-12-03 06:10] LABS: ALBUMIN 2.2 g/dL (3.4-5.0); ANION GAP 13.3 mmol/L (8-16); BILIRUBIN - TOTAL 0.88 mg/dL (0.2-1.3); CALCIUM 7.5 mg/dL (8.5-10.1); POTASSIUM - SERUM 4.3 mmol/L (3.5-5.1); PROTEIN - SERUM 5.7 g/dL (6.4-8.2)
[2018-12-03 06:11] LABS: CREATININE - SERUM 1.5 mg/dL (0.6-1.3)
[2018-12-03 08:34] LABS: LYMPHOCYTES 13 % (15-50); MONOCYTES 3 % (2-11); NEUTROPHILS 72 % (40-80); PLATELET ESTIMATE NORMAL
--- NOTE | 2018-12-03 13:24 | NUR ---
0715-RECIEVED AWAKE AND ALERT-IN BED-SR ON MONITOR-L LATERAL CHEST TUBE TO 20CM SUCTION-NO AIR LEAK AND SEEROUS DRAINAGE-SMALL AMOUNT-ON O2 2L-ROME IN PLACE 0800-DR MURPHY AT BEDSIDE-ORDERS RECIEVED 0815-R RADIAL ROME D/C'D PER PROTOCOL-TIP INTACT-MORGAN CATH D/C'D TIP INTACT- CHEST TUBE -TO WATER SEAL- 0830-NOTED PENDING PLUERAL FLUID SAMPLES TO BE SENT-ASPIRATED 20ML WITH STERILE TECHNIQUE-AND SENT TO LAB 1030-NOTIFIED BY LAB NOT ENOUGH SAMPLE OBTAINED-DR JAMISON AT [facility]-INFORMED OF SAME-VOICED CONCERN NOT DRAWN INITIALLY AT CHEST TUBE INSERTION TIME 1230-SENT ADDITIONAL PLUERAL 20ML-TO LAB-CHEST TUBE REMAINS IN PLACE -STRAIGHT DRAINAGE-NO AIR LEAK -UP IN CHAIR-RT RX IN PROGRESS FLUTTER VALVE
[2018-12-03 14:06] LABS: PROTEIN - BODY FLUID 2.3 G/DL
[2018-12-03 14:29] LABS: MACROPHAGES BF 11 %; MESOTHELIALS BF 15 %; NEUT - BF 50 %
--- NOTE | 2018-12-03 15:44 | OP ---
PATIENT NAME: DAPHNIE CARVAJAL MEDICAL RECORD: [id number] :51 LOCATION:D.CVI D.CV04 ADMISSION DATE:12/02/18 SURGEON: GISELA MURPHY MD DATE OF OPERATION: 12/02/2018 SURGEON: Gisela Murphy MD MARINE REPORTER: Jayden Espinoza PROCEDURES PERFORMED: 1. Sternal wound exploration. 2. Left tube thoracostomy. PREOPERATIVE DIAGNOSES: Left pleural effusion and sternal wound dehiscence. POSTOPERATIVE DIAGNOSES: Left pleural effusion and sternal wound dehiscence. ANESTHESIA: General endotracheal anesthesia. ESTIMATED BLOOD LOSS: Minimal. COMPLICATIONS: None. SPECIMENS: None. CONDITION: Stable. DISPOSITION: ICU. OPERATIVE FINDINGS: 1. The sternum was completely intact with no evidence of osteomyelitis or other infection. Some fluid was draining from the upper one-third of the wound between the sternal fascia. 2. Transesophageal echocardiography confirmed no pericardial effusion, good global contractility, and left pleural effusion. 3. A 1200 cc serosanguineous left pleural effusion. No further fluid per chest wound after drainage. INDICATION: Sternal wound drainage and left pleural effusion. PROCEDURE IN DETAIL: The patient was brought to the operating suite. General anesthesia was obtained. The patient was prepped and draped. Transesophageal echocardiography was performed as noted above. The old sutures were all removed from the sternal wound and the sternal wires were intact. They were briefly loosened, but the sternal edges remained well approximated despite only about 2 weeks since the previous surgery. Some fluid was draining between the sternum at the lower end of the manubrium and above the sternal notch. The left anterior and lateral chest had been prepped into the wound and at approximately the midclavicular line, 6th interspace, the left pleural cavity was accessed and a trocar chest tube was used to drain about 1200 cc of serosanguineous effusion. There was then no further drainage above or between the sternum. The sternal wires were retightened. Chest tube was sutured into place. Thorough antibiotic irrigation with vancomycin was performed. The fascia was then closed at this time with PDS suture, a running Vicryl OPERATIVE REPORT [id number] DAPHNIE CARVAJAL subcutaneous, and subcuticular Monocryl. Dermabond was placed and Marcaine was used for local anesthetic. Needle and sponge counts were correct. The patient was taken from the operating room in good condition. TRANSINT:[id number] Voice Confirmation ID: [id number] DOCUMENT ID: [id number] GISELA MURPHY MD at 1544 CC: [id number] DICTATION DATE: 12/02/18 1327 MULTIPLE PUNCH PRESS OPERATOR: 12/02/18 1416 ADM IN [place] [address] [place] [address]
--- NOTE | 2018-12-03 17:50 | NUR ---
0771-UP TO BEDSIDE CHAIR FOR DINNER TRAY
--- NOTE | 2018-12-03 19:00 | NUR ---
REPORT RECEIVED CARE ASSUMED. PT LAYING IN BED RESTING VSS. NO SIGNS OF ACUTE DISTRESS NTOED. ASSESSMENT DONE SEE FLOW SHEET. ICU MONITORS IN PLACE ALARMS SET AND VERIFIED. WILL CONTINUE TO MONITOR.
--- NOTE | 2018-12-03 21:00 | NUR ---
MEDS GIVEN PER MAR. VSS. NO SINGS OF ACUTE DISTRESS NOTED WILL CONINTUE TO MONITOR.
--- NOTE | 2018-12-03 23:00 | NUR ---
REASSESSMENT DONE SEE FLOW SHEET. VSS. NO SIGNS OF ACUTE DISTRESS NOTED.
[2018-12-04] VITALS (23 sets, daily range): BP systolic 122–165; BP diastolic 52–68
--- NOTE | 2018-12-04 02:59 | NUR ---
REASSESSMENT DONE SEE FLOW SHEET. VSS. WILL CONITNUE TO MONITOR.
[2018-12-04 05:13] LABS: BASOPHILS 0.3 % (0-2); HEMATOCRIT 29.3 % (42.0-54.0); HEMOGLOBIN 9.3 g/dL (13.5-17.5); IMMATURE GRANULOCYTES 0.9 % (0-5); LYMPHOCYTES 12.5 % (15-50); MCH 31.3 pg (26.0-34.0); MCHC 31.7 g/dL (31.0-37.0); MCV 98.7 fL (80.0-100.0); MEAN PLATELET VOLUME 8.8 fL (7.4-10.4); MONOCYTES 6.8 % (2-11); NEUTROPHILS 77.5 % (40-80); RBC 2.97 10x6/uL (4.20-6.10); RDW 14.4 % (11.5-14.5)
[2018-12-04 05:19] LABS: PLATELET COUNT 233 10x3/uL (130-400); WBC 14.9 10x3/uL (4.8-10.8)
[2018-12-04 05:42] LABS: ALBUMIN 2.2 g/dL (3.4-5.0); ANION GAP 12.8 mmol/L (8-16); BILIRUBIN - TOTAL 0.48 mg/dL (0.2-1.3); CALCIUM 7.8 mg/dL (8.5-10.1); CARBON DIOXIDE 26.8 mmol/L (21.0-32.0); CREATININE - SERUM 1.2 mg/dL (0.6-1.3); MAGNESIUM - SERUM 1.7 mg/dL (1.8-2.4); PHOSPHOROUS 3.4 mg/dL (2.5-4.9)
[2018-12-04 05:48] LABS: POTASSIUM - SERUM 3.6 mmol/L (3.5-5.1)
[2018-12-04 06:50] LABS: % SATURATION 9 % (15-55); IRON 19 ug/dl (35-150); TOTAL IRON BIND CAPACITY 205 ug/dl (260-445); UNSAT IRON BIND CAPACITY 186 ug/dl (150-375)
--- NOTE | 2018-12-04 18:09 | NUR ---
0715-RECIEVED AWAKE AND ALERT-UP IN CHAIR-NOTED L LOWER LOBE RALES/CRACKLES-CHEST TUBE IN SITU-NO AIR LEAK NOTED-SEROUS TYPE FLUID 1030-DR MURPHY AT [facility] 1100-SPUTUM SAMPLE SENT 1300-DR JAMISON AT BEDSIDE AND DISCUSSED CURRENT COURSE OF TREATMENT-CHEST TUBE TO REMAIN 1530-RESTING QUIETLY 1730-PT ALERT IN BED
[2018-12-04 21:06] LABS: ACID FAST SMEAR Negative (()); AFB SPECIMEN PROCESSING Not Indicated (())
--- NOTE | 2018-12-04 23:00 | NUR ---
REASSESSMENT DONE SEE FLOW SHEET. VSS. WILL CONTINUE TO MONITOR.
[2018-12-05] VITALS (11 sets, daily range): BP systolic 122–154; BP diastolic 54–74
--- NOTE | 2018-12-05 01:00 | NUR ---
PT IN BED RESTING. VSS. NO SIGNS OF ACUTE DISTRESS NOTED. WILL CONTINUE TO MONITOR.
--- NOTE | 2018-12-05 03:00 | NUR ---
REASSESSMENT DONE SEE FLOW SHEET. VSS. WILL CONTINUE TO MONITOR.
[2018-12-05 05:50] LABS: BASOPHILS 0.4 % (0-2); EOSINOPHILS 3.5 % (0-7); HEMATOCRIT 28.8 % (42.0-54.0); HEMOGLOBIN 9.3 g/dL (13.5-17.5); IMMATURE GRANULOCYTES 0.8 % (0-5); LYMPHOCYTES 14.3 % (15-50); MCH 31.7 pg (26.0-34.0); MCHC 32.3 g/dL (31.0-37.0); MCV 98.3 fL (80.0-100.0); MEAN PLATELET VOLUME 9.2 fL (7.4-10.4); MONOCYTES 5.9 % (2-11); NEUTROPHILS 75.1 % (40-80); PLATELET COUNT 247 10x3/uL (130-400); RBC 2.93 10x6/uL (4.20-6.10); RDW 13.9 % (11.5-14.5); WBC 12.8 10x3/uL (4.8-10.8)
[2018-12-05 06:22] LABS: CALC OSMOLALITY 268 mosm/kg (275-300); CALCIUM 7.9 mg/dL (8.5-10.1); CARBON DIOXIDE 28.1 mmol/L (21.0-32.0); CHLORIDE - SERUM 102 mmol/L (98-107); CREATININE - SERUM 0.9 mg/dL (0.6-1.3); GLUCOSE 104 mg/dL (74-106); POTASSIUM - SERUM 4.1 mmol/L (3.5-5.1); SODIUM 134 mmol/L (136-145); UREA NITROGEN 15 mg/dL (7-18); eGFR NON AFRICAN AMERICAN 90 mL/min (90-120)
[2018-12-05 07:22] LABS: ERYTHROCYTE SEDIMENTATION RATE 78 mm/hr (0-20)
--- NOTE | 2018-12-05 07:45 | NUR ---
0715-SITTING UP IN CHAIR-SEROUS FLUID-NO AIR LEAK IN CHEST TUBE-L CVL SALINE LOCKED AND ROOM AIR
[2018-12-05] MEDS ORDERED: LEVOFLOXACIN500 MG PO (12:13)
[2018-12-05] MEDS ORDERED: K-DUR20 MEQ PO (12:14)
[2018-12-05] MEDS ORDERED: LASIX40 MG PO (12:14)
[2018-12-05] MEDS ORDERED: LOPRESSOR25 MG PO (12:14)
--- NOTE | 2018-12-05 13:54 | MORECARE ---
CASE MANAGEMENT DISCHARGE SUMMARY PATIENT: DAPHNIE CARVAJAL UNIT: [id number] ADM DATE: 12/02/18 AGE: 63 : 53 SEX: M ROOM/BED: [facility] AUTHOR: COLLINS VELASQUEZ PHYSICIAN: REFERRING PHYSICIAN: GISELA MURPHY MD DATE OF SERVICE: 12/05/18 Discharge Plan Patient Name: DAPHNIE CARVAJAL [facility] [facility] 1955 Planned Disposition: Home Anticipated Discharge Date: 12/05/18 Discharge Date: Expected LOS: 3 Initial Reviewer: [email or web address] Initial Review Date: 12/02/2018 Generated: 12/05/18 2:54 pm Patient Name: DAPHNIE CARVAJAL Page [id number] at 1354 All edits/amendments must be made on the electronic document DICTATION DATE: 12/05/18 1354 CELLOPHANE WORKER: FABRICIO 12/05/18 1354 RPT#: [id number] DC DATE: STATUS: ADM IN [facility] [address] [place] [address] END OF REPORT
--- NOTE | 2018-12-05 14:15 | MORECARE ---
CASE MANAGEMENT DISCHARGE SUMMARY PATIENT: DAPHNIE CARVAJAL UNIT: [id number] ADM DATE: 12/02/18 AGE: 63 : 53 SEX: M ROOM/BED: [facility] AUTHOR: COLLINS VELASQUEZ PHYSICIAN: REFERRING PHYSICIAN: GISELA MURPHY MD DATE OF SERVICE: 12/05/18 Discharge Plan Patient Name: DAPHNIE CARVAJAL [facility] [facility] 1955 Planned Disposition: Home Anticipated Discharge Date: 12/05/18 Discharge Date: Expected LOS: 3 Initial Reviewer: [email or web address] Initial Review Date: 12/02/2018 Generated: 12/05/18 3:15 pm Comments DCP- Discharge Planning Updated by [email or web address]: Tiffani Kidd on 12/05/18 1:[address] PATIENT IS ALERT AND ORIENTED. ANXIOUS FOR DISCHARGE TO HOME. HIS WILL PROVIDE TRANSPORTATION. HE HAS AN ORDER FOR NEBULIZER WITH DUONEB Q6H. DR JAMISON HAD SPOKEN WITH AT 1230 REGARDING POSSIBLE DISCHARGE BY DR DU TODAY. DR DU DISCHARGED PATIENT AND PRIMARY NURSE CALLED AT 1310. PATIENT HAS NO PREFERENCE FOR PROVIDER. TC TO [facility]. SPOKE W/ VETERINARY TECHNICIAN.. FAXED FACE SHEET, MD ORDER, PULMONARY NOTE AND DISCHARGE SUMMARY TO [phone]. WILL NEED PULMONARY MD SIGNATURE BEFORE DELIVERY PER [facility] DRUG ABUSE RESISTANCE EDUCATION OFFICER. CM ADVISED PRIMARY NURSE. NURSE TO CALL NURSING DRUG ABUSE RESISTANCE EDUCATION OFFICER FOR APPROVAL OF 10 VIALS OF DUONEB FOR PATIENT UNTIL HIS CAN BE DELIVERED. Last DP export: 12/05/18 12:54 pm Patient Name: DAPHNIE CARVAJAL Page [phone] at 1415 All edits/amendments must be made on the electronic document DICTATION DATE: 12/05/181413 GILL BOX OPERATOR: FABRICIO 12/05/181413 RPT#: [id number] DC DATE: STATUS: ADM IN [facility] [address] [place] [address] END OF REPORT
--- NOTE | 2018-12-05 16:50 | NUR ---
1215-DR MURPHY AT BEDSIDE-L CHEST TUBE REMOVED-TOLERATED WELL- 1245-DRG SATURATED-CHANGED PER POLICY 1300-PT TO XRAY VIA WHEELCHAIR-CASEMANAGEMENT CONSULT CALLED TO ADAM WILLIS- 1330-L CVL REMOVED WITH OUT DIFFICULTY-PER PROTOCOL- NOTIFIED OF DISCHARGE ORDER 1500-[facility]-REVIEWED WITH PT AND USE OF EQUIPMENT-PT PROVIDED WITH 10 DUONEB FROM PHARMACY 1530-DISCHARGED HOME WITH
--- NOTE | 2018-12-06 10:23 | MORECARE ---
CASE MANAGEMENT DISCHARGE SUMMARY PATIENT: DAPHNIE CARVAJAL UNIT: [id number] ADM DATE: 12/02/18 AGE: 63 : 53 SEX: M ROOM/BED: [facility] AUTHOR: COLLINS VELASQUEZ PHYSICIAN: REFERRING PHYSICIAN: GISELA MURPHY MD DATE OF SERVICE: 12/06/18 Discharge Plan Patient Name: DAPHNIE CARVAJAL [facility] [facility] 1955 Planned Disposition: Home Anticipated Discharge Date: 12/05/18 Discharge Date: 12/05/2018 Expected LOS: 3 Initial Reviewer: [email or web address] Initial Review Date: 12/02/2018 Generated: 12/06/18 11:23 am Comments DCP- Discharge Planning Updated by [email or web address]: Tiffani Kidd on 12/05/18 1:[address] PATIENT IS ALERT AND ORIENTED. ANXIOUS FOR DISCHARGE TO HOME. HIS WILL PROVIDE TRANSPORTATION. HE HAS AN ORDER FOR NEBULIZER WITH DUONEB Q6H. DR JAMISON HAD SPOKEN WITH AT 1230 REGARDING POSSIBLE DISCHARGE BY DR DU TODAY. DR DU DISCHARGED PATIENT AND PRIMARY NURSE CALLED AT 1310. PATIENT HAS NO PREFERENCE FOR PROVIDER. TC TO [facility]IENT. SPOKE W/ DAYTIME CAREGIVER.. FAXED FACE SHEET, MD ORDER, PULMONARY NOTE AND DISCHARGE SUMMARY TO [phone]. WILL NEED PULMONARY MD SIGNATURE BEFORE DELIVERY PER [facility] IT SYSTEMS ANALYST. ADVISED PRIMARY NURSE. NURSE TO CALL NURSING IT SYSTEMS ANALYST FOR APPROVAL OF 10 VIALS OF DUONEB FOR PATIENT UNTIL HIS CAN BE DELIVERED. Last DP export: 12/05/18 1:15 pm Patient Name: DAPHNIE CARVAJAL Page [phone] at 1023 All edits/amendments must be made on the electronic document DICTATION DATE: 12/06/18 1022 SECTION GANG: FABRICIO 12/06/18 1022 RPT#: [id number] DC DATE:12/05/18 STATUS: DIS IN [facility] [address] [place] [address] END OF REPORT
[2018-12-06 14:14] LABS: FUNGUS STAIN Final report (())
== END 2018-12-05 15:45 | disposition home or self-care (01) | DRG 163 ==
LOC: D.ER 00:18 → D.M2 02:56 → D.CVICU 02:56
PROVIDERS: Family Medicine; Internal Medicine Pulmonary Disease; ADMIT Thoracic Surgery (Cardiothoracic Vascular Surgery); ATTEND Thoracic Surgery (Cardiothoracic Vascular Surgery)
PROC: 0W9B00Z Drainage of Left Pleural Cavity with Drainage Device, Open Approach (ICD-10-PCS; 2018-12-02)
PROC: B245ZZ4 Ultrasonography of Left Heart, Transesophageal (ICD-10-PCS; 2018-12-02)
PROC: 0WJC0ZZ Inspection of Mediastinum, Open Approach (ICD-10-PCS; principal; 2018-12-02 08:15)
DX: J90 Pleural effusion, not elsewhere classified (principal); J95.821 Acute postprocedural respiratory failure; J69.0 Pneumonitis due to inhalation of food and vomit; T81.31XA Disruption of external operation (surgical) wound, not elsewhere classified, initial encounter; J98.11 Atelectasis; J44.1 Chronic obstructive pulmonary disease with (acute) exacerbation; N17.9 Acute kidney failure, unspecified; Y84.9 Medical procedure, unspecified as the cause of abnormal reaction of the patient, or of later complication, without mention of misadventure at the time of the procedure; I25.10 Atherosclerotic heart disease of native coronary artery without angina pectoris; I45.10 Unspecified right bundle-branch block; I11.0 Hypertensive heart disease with heart failure; I50.9 Heart failure, unspecified

== ENCOUNTER → 2018-12-13 09:16 | Outpatient (CLI) | payer MEDICARE, BC ==
[2018-12-02 13:33] VITALS: BMI 23.0
[~2018-12-13 09:16] MED LIST changes: +K-DUR20 MEQ PO; +LASIX40 MG PO; +LEVOFLOXACIN500 MG PO; +LOPRESSOR25 MG PO
== END | disposition home or self-care (01) ==
LOC: D.RAD 09:16
PROVIDERS: ATTEND Thoracic Surgery (Cardiothoracic Vascular Surgery)
DX: J90 Pleural effusion, not elsewhere classified (principal)

== ENCOUNTER → 2018-12-24 08:57 | Outpatient (CLI) | payer MEDICARE, BC ==
[2018-12-02 13:33] VITALS: BMI 23.0
[2018-12-24 09:21] LABS: HEMATOCRIT 43.4 % (42.0-54.0); HEMOGLOBIN 14.2 g/dL (13.5-17.5); MCH 30.9 pg (26.0-34.0); MCHC 32.7 g/dL (31.0-37.0); MCV 94.6 fL (80.0-100.0); MEAN PLATELET VOLUME 9.7 fL (7.4-10.4); RBC 4.59 10x6/uL (4.20-6.10); RDW 13.1 % (11.5-14.5); WBC 8.9 10x3/uL (4.8-10.8)
[2018-12-24 09:33] LABS: ALBUMIN 3.1 g/dL (3.4-5.0); ALKALINE PHOSPHATASE 198 U/L (46-116); ALT (SGPT) 37 U/L (10-68); BILIRUBIN - TOTAL 0.48 mg/dL (0.2-1.3); CALC OSMOLALITY 277 mosm/kg (275-300); CALCIUM 9.2 mg/dL (8.5-10.1); CARBON DIOXIDE 31.7 mmol/L (21.0-32.0); CHLORIDE - SERUM 100 mmol/L (98-107); PROTEIN - SERUM 7.8 g/dL (6.4-8.2); SODIUM 136 mmol/L (136-145); UREA NITROGEN 18 mg/dL (7-18); eGFR NON AFRICAN AMERICAN 80 mL/min (90-120)
[2018-12-24 09:34] LABS: GLUCOSE 174 mg/dL (74-106)
== END | disposition home or self-care (01) ==
LOC: D.RAD 12-22 09:15 → D.LAB 12-22 09:15 → D.RAD 08:57
PROVIDERS: ATTEND Thoracic Surgery (Cardiothoracic Vascular Surgery)
DX: J90 Pleural effusion, not elsewhere classified (principal); D64.9 Anemia, unspecified

== ENCOUNTER → 2019-05-09 13:54 | Outpatient (CLI) | payer MEDICARE, BC ==
[2018-12-02 13:33] VITALS: BMI 23.0
== END | disposition home or self-care (01) ==
LOC: D.US 13:54
PROVIDERS: ATTEND Thoracic Surgery (Cardiothoracic Vascular Surgery)
DX: I65.23 Occlusion and stenosis of bilateral carotid arteries (principal)

== ENCOUNTER → 2019-06-27 09:54 | Outpatient (CLI) | payer MEDICARE, BC ==
[2018-12-02 13:33] VITALS: BMI 23.0
== END | disposition home or self-care (01) ==
LOC: D.RT 09:54
PROVIDERS: ATTEND Internal Medicine Pulmonary Disease
DX: J44.9 Chronic obstructive pulmonary disease, unspecified (principal)

== ENCOUNTER → 2020-02-07 11:25 | Outpatient (CLI) | payer MEDICARE, BC ==
[2018-12-02 13:33] VITALS: BMI 23.0
== END | disposition home or self-care (01) ==
LOC: D.HCCECHO 11:25
PROVIDERS: ATTEND Internal Medicine Cardiovascular Disease
DX: I10 Essential (primary) hypertension (principal); I25.10 Atherosclerotic heart disease of native coronary artery without angina pectoris; Z95.1 Presence of aortocoronary bypass graft

== ENCOUNTER 2020-03-22 12:25 | Day surgery (SDC) | payer MEDICARE, BC ==
[2020-03-20 15:08] LABS: HEMATOCRIT 43.5 % (42.0-54.0); HEMOGLOBIN 14.3 g/dL (13.5-17.5); MCH 31.5 pg (26.0-34.0); MCHC 32.9 g/dL (31.0-37.0); MCV 95.8 fL (80.0-100.0); RBC 4.54 10x6/uL (4.20-6.10); RDW 13.2 % (11.5-14.5); WBC 8.1 10x3/uL (4.8-10.8)
[2020-03-20 15:11] LABS: ANION GAP 9.3 mmol/L (8-16); CARBON DIOXIDE 32.5 mmol/L (21.0-32.0); CREATININE - SERUM 1.2 mg/dL (0.6-1.3); POTASSIUM - SERUM 4.8 mmol/L (3.5-5.1)
[~2020-03-22] VITALS: Ht 170.2 cm; Wt 74.1 kg
[~2020-03-22 12:25] MED LIST changes: +INDOCIN25 MG PO
[2020-03-22 13:25] VITALS: BP 178/87; Ht 170.2 cm; Wt 74.1 kg
[2020-03-22] MEDS ORDERED: HYDROCODON-ACE1 EA10 PO (18:20)
--- NOTE | 2020-03-22 19:43 | NUR ---
PATIENT POSITIONED ON KALYAN BACK FRAME ALL AREAS PADDED AND SECURED, GENITAL CHECKED, FREE WITH NO IMPINGEMENTS, RADHA.
[2020-03-22 20:45] VITALS: BP 168/59
--- NOTE | 2020-03-22 20:50 | NUR ---
PT ARRIVED TO THE FLOOR. ALERT AND ORIENTED. NO SIGNS OF DISTRESS. PT ON RA. VITALS ARE STABLE. PT STATES NO PAIN OR PROBLEMS AT THIS TIME. DRESSING TO BACK. CLEAN DRY AND INTACT. SKIN CLEAN DRY AND INTACT. PT TRYING TO DRINK WATER AND EAT NOW. WILL FALLOW UP.
[2020-03-22 21:15] LABS: APTT 46.9 SECONDS (22.8-39.4); INR 1.24 (0.85-1.17); PROTIME 15.5 SECONDS (11.6-15.0)
--- NOTE | 2020-03-22 22:38 | NUR ---
PT DC HOME WITH . PT VITALS STABLE. PT HAS ATE, DRINK, AND VOIDED. STILL STATES NO PAIN OR ANY N/V. REMOVED IV. SIGNED AND WENT OVER DISCHARGE INSTRUCTIONS WITH PT AND .
--- NOTE | 2020-04-03 13:10 | OP ---
PATIENT NAME: DAPHNIE CARVAJAL MEDICAL RECORD: [id number] :51 LOCATION:[facility] ADMISSION DATE: SURGEON: JONES VORA MD DATE OF OPERATION: 03/22/2020 DATE OF SERVICE: 03/22/2020 PREOPERATIVE DIAGNOSIS: Lumbar spinal stenosis and foraminal stenosis, L4-L5, left. POSTOPERATIVE DIAGNOSIS: Lumbar spinal stenosis and foraminal stenosis, L4-L5, left. SURGEON: Jones Vora MD ASSISTANT BUSINESS MANAGER: Magdi Pacheco APN DESCRIPTION AND TECHNIQUE: After induction of general endotracheal anesthesia, the patient was rolled prone on a Ori frame. Lumbar spine was prepped and draped in the usual sterile fashion. Fluoroscopic x-ray and spinal needle localized the L4-L5 interspace on the left side. After infiltration 1:100,000 epinephrine with 1% lidocaine, a stab incision was created with a #11 blade. Series of dilators was used to advance a METRx retractor to the L4-L5 interspace on the left side. Level was confirmed with fluoroscopic x-ray. A microscope and Midas Alvaro drill were used to perform laminotomy, medial facetectomy and foraminotomy at L4-L5 on the left. Hypertrophied ligamentum flavum was removed with Cloward rongeurs. Following this, the further foraminotomy was created with a #3 Cloward rongeur in the L4-L5 foramen. Following this, the L4 and L5 nerve roots were decompressed well within the canal and the foramen. Meticulous hemostasis was maintained throughout the wound. Magdi Pacheco assisted under the microscope with hemostasis and irrigation during the procedure, held retraction. Next, the retractors were removed, fascia was closed with 2-0 Vicryl suture, the subdermal layer was closed with 3-0 Vicryl suture. Magdi Pacheco, registrar assistant helped with hemostasis and retraction during the closure procedure. TRANSINT:[id number] Voice Confirmation ID: [id number] DOCUMENT ID: [id number] JONES VORA MD at 1310 CC: [id number] DICTATION DATE: 04/03/20 1120 TESTING MANAGER: 04/03/20 1222 [facility] 03/22/20 [place] [address]
== END 2020-03-22 22:40 | disposition home or self-care (01) ==
LOC: D.OPS 12:25 → D.PAN 14:00 → D.OPS 14:30 → D.PAN 16:40 → D.OPS 17:00 → D.PAN 17:00 → D.MS 20:20 → D.OPS 22:40
PROVIDERS: Anesthesiology; ATTEND Neurological Surgery
DX: M54.16 Radiculopathy, lumbar region (principal); M48.061 Spinal stenosis, lumbar region without neurogenic claudication